=== PATIENT | female | born 1945 | race Caucasian/White ===

== ENCOUNTER 2018-10-18 13:48 | Emergency (ER) | payer MEDICAID, OTHER ==
[~2018-10-18] VITALS: Ht 157.5 cm; Wt 72.6 kg
[~2018-10-18 13:48] MED LIST: HYDR500T13 PO; LEVO500T21 PO; LISI-285 PO; NAPR-591; PRED-188 PO; SIMV-13 PO
[2018-10-18] MEDS ORDERED: cloNIDine HCL 0.1 MG TAB PO ONE (15:00)
[2018-10-18 15:19] LABS: Basophils # (auto) 0 uL; Basophils % (auto) 0.3 % (0.0-2.0); Eosinophils # (auto) 0.1 uL; Eosinophils % (auto) 0.9 % (0.0-7.0); Hematocrit 38.7 % (36.0-46.0); Hemoglobin 12.6 g/dL (12.2-16.2); Lymphocytes # (auto) 1.4 uL; Lymphocytes % (auto) 20.3 % (10.0-50.0); Mean Corpuscular Hemoglobin 28.7 pg (28.0-32.0); Mean Corpuscular Hgb Conc. 32.4 g/dL (32.0-36.0); Mean Corpuscular Volume 88.3 fL (80.0-100.0); Monocytes # (auto) 0.5 uL; Monocytes % (auto) 6.8 % (0.0-12.0); Neutrophils # (auto) 4.9 uL; Neutrophils % (auto) 71.7 % (37.0-80.0); Nucleated Red Blood Cells % 0.1 %; Platelet Count (auto) 189 10^3/uL (140-450); Red Blood Cells 4.38 10^6/uL (4.0-5.20); Red Cell Distribution Width 13.6 % (11.8-14.3); White Blood Cell 6.8 10^3/uL (4.4-10.8)
[2018-10-18] MEDS ORDERED: ALBUTEROL SULF 2.5 MG/0.5ML(0.5%) NEB SOLN NEB ONE (15:45)
[2018-10-18] MEDS ORDERED: IPRATROPIUM BROM 0.5 MG/2.5ML INH SOL NEB ONE (15:45)
[2018-10-18] MEDS ORDERED: methylPREDNISolone SOD SUCC 125 MG/2 ML VL IV ONE (15:45)
[2018-10-18 15:48] LABS: Albumin 4.1 g/dL (3.4-5.0); Anion Gap 8 (5-15); Blood Urea Nitrogen 26 mg/dL (7-18); Calcium 9.4 mg/dL (8.5-10.1); Carbon Dioxide 24 mmol/L (21-32); Chloride 108 mmol/L (98-107); Glucose 113 mg/dL (74-106); Potassium 3.7 mmol/L (3.5-5.1); Sodium 140 mmol/L (136-145)
[2018-10-18 15:54] LABS: Alanine Aminotransferase 21 U/L (13-56); Alkaline Phosphatase 96 U/L (45-117); Aspartate Aminotransferase 17 U/L (15-37); BUN/Creatinine Ratio 21.3; Bilirubin, Total 0.7 mg/dL (0.2-1.0); GFR African American 56 mL/min; GFR Non-African American 46 mL/min; Total Protein 7.7 g/dL (6.4-8.2)
[2018-10-18 19:19] VITALS: BP 128/70
== END 2018-10-18 19:20 | disposition home or self-care (01) ==
LOC: EDBD 13:48 → ER 13:48
DX: J44.9 Chronic obstructive pulmonary disease, unspecified (principal); F17.210 Nicotine dependence, cigarettes, uncomplicated; N83.209 Unspecified ovarian cyst, unspecified side; Z90.710 Acquired absence of both cervix and uterus
CPT/HCPCS: 36415; 71046; 80053; 84484; 85025; 94640; 96374; 99284; J2930; J7611; J7644

== ENCOUNTER 2019-08-07 23:03 | Emergency (ER) | payer OTHER ==
[~2019-08-07] VITALS: Ht 157.5 cm; Wt 75.0 kg
[2019-08-08] MEDS ORDERED: cloNIDine HCL 0.1 MG TAB PO ONE
[2019-08-08] MEDS ORDERED: cloNIDine HCL 0.1 MG TAB ONE (00:01)
[2019-08-08 00:20] LABS: Basophils # (auto) 0 uL; Basophils % (auto) 0.3 % (0.0-2.0); Eosinophils # (auto) 0.1 uL; Eosinophils % (auto) 1.5 % (0.0-7.0); Hematocrit 40.3 % (36.0-46.0); Hemoglobin 13.6 g/dL (12.2-16.2); Lymphocytes # (auto) 2.1 uL; Lymphocytes % (auto) 30.1 % (10.0-50.0); Mean Corpuscular Hemoglobin 30.6 pg (28.0-32.0); Mean Corpuscular Hgb Conc. 33.6 g/dL (32.0-36.0); Monocytes # (auto) 0.7 uL; Monocytes % (auto) 10.4 % (0.0-12.0); Neutrophils % (auto) 57.7 % (37.0-80.0); Platelet Count (auto) 190 10^3/uL (140-450); Red Blood Cells 4.43 10^6/uL (4.0-5.20); White Blood Cell 6.9 10^3/uL (4.4-10.8)
[2019-08-08 00:47] LABS: Albumin 4.3 g/dL (3.4-5.0); Anion Gap 7 (5-15); Blood Urea Nitrogen 20 mg/dL (7-18); Calcium 9.4 mg/dL (8.5-10.1); Carbon Dioxide 27 mmol/L (21-32); Chloride 105 mmol/L (98-107); Glucose 106 mg/dL (74-106); Potassium 3.9 mmol/L (3.5-5.1); Sodium 139 mmol/L (136-145)
[2019-08-08 00:48] LABS: Alanine Aminotransferase 58 U/L (13-56); Aspartate Aminotransferase 32 U/L (15-37); BUN/Creatinine Ratio 19.4; GFR African American 67 mL/min; GFR Non-African American 56 mL/min
[2019-08-08 00:54] LABS: Alkaline Phosphatase 99 U/L (45-117)
[2019-08-08 04:51] LABS: Urine Bacteria MANY /hpf (None Seen); Urine Blood Negative /uL (Negative); Urine Hyaline Cast MANY /lpf (0 - 2); Urine Mucus FEW (None Seen); Urine Specific Gravity 1.029 (1.001-1.035); Urine WBC 16 /hpf (0 - 5)
[2019-08-08] MEDS ORDERED: cefTRIAXone 1GM/50ML D5W 50 ML IV ONE (07:30)
[2019-08-08 09:16] VITALS: BP 158/65
== END 2019-08-08 11:21 | disposition home or self-care (01) ==
LOC: ER 23:09
DX: N39.0 Urinary tract infection, site not specified (principal); I10 Essential (primary) hypertension; M79.10 Myalgia, unspecified site; J44.9 Chronic obstructive pulmonary disease, unspecified; E78.5 Hyperlipidemia, unspecified; Z90.710 Acquired absence of both cervix and uterus; Z87.891 Personal history of nicotine dependence; Z79.2 Long term (current) use of antibiotics; Z79.899 Other long term (current) drug therapy
CPT/HCPCS: 36415; 71045; 80053; 81001; 84484; 85025; 93005; 96365; 99284; J0696

== ENCOUNTER 2021-09-29 13:58 | Inpatient (IN) | payer OTHER ==
[~2021-09-29] VITALS: Ht 152.4 cm; Wt 77.0 kg
[~2021-09-29 13:58] MED LIST changes: -LEVO500T21 PO; +LEVO500T31 PO
[2021-09-29] MEDS ORDERED: ONDANSETRON HCL 4 MG/2 ML VIAL IV ONE ×2 (14:30→18:15)
[2021-09-29] MEDS ORDERED: MORPHINE SULFATE 4 MG/ML SYR/VIAL IV ONE ×2 (14:30→18:15)
[2021-09-29 15:14] LABS: Basophils # (auto) 0 10 ^3/uL (0-0.2); Basophils % (auto) 0.2 % (0.0-2.0); Eosinophils # (auto) 0 10 ^3/uL (0-0.8); Eosinophils % (auto) 0.1 % (0.0-7.0); Hematocrit 35.9 % (36.0-46.0); Hemoglobin 11.4 g/dL (12.2-16.2); Lymphocytes # (auto) 0.9 10 ^3/uL (0.4-5.4); Lymphocytes % (auto) 7.7 % (10.0-50.0); Mean Corpuscular Hemoglobin 28.3 pg (28.0-32.0); Mean Corpuscular Hgb Conc. 31.7 g/dL (32.0-36.0); Mean Corpuscular Volume 89.3 fL (80.0-100.0); Monocytes # (auto) 0.4 10 ^3/uL (0-1.3); Monocytes % (auto) 3.9 % (0.0-12.0); Neutrophils # (auto) 9.9 10 ^3/uL (1.6-8.6); Neutrophils % (auto) 88.1 % (37.0-80.0); Nucleated Red Blood Cells % 0.2 %; Red Blood Cells 4.02 10^6/uL (4.0-5.20); Red Cell Distribution Width 14.4 % (11.8-14.3); White Blood Cell 11.2 10^3/uL (4.4-10.8)
[2021-09-29 15:34] LABS: INR 1.07 (0.9-1.15); Partial Thromboplastin Time 26.5 sec (23.6-33.0)
[2021-09-29 15:38] LABS: Potassium 3.6 mmol/L (3.5-5.1)
[2021-09-29] MEDS ORDERED: hydrALAZINE HCL 20 MG/ML VL IV ONE (15:45)
[2021-09-29 15:49] LABS: Albumin 3.9 g/dL (3.4-5.0); BUN/Creatinine Ratio 14.3; Bilirubin, Total 0.8 mg/dL (0.2-1.0); Calcium 9.3 mg/dL (8.5-10.1); Magnesium 1.8 mg/dL (1.6-2.6); Total Protein 7.8 g/dL (6.4-8.2)
[2021-09-29 16:21] LABS: Urine Bacteria NONE SEEN /hpf (None Seen); Urine Blood TRACE /uL (Negative); Urine Specific Gravity 1.011 (1.001-1.035); Urine WBC 1 /hpf (0 - 5)
[2021-09-29] MEDS ORDERED: MORPHINE SULFATE INJECTION 2 MG/ML SYRG IV PRN (18:45)
[2021-09-29] MEDS ORDERED: NITROGLYCERIN 0.4 MG SL TAB SL PRN (18:45)
[2021-09-29 20:30] VITALS: BP 143/81
[2021-09-29] MEDS ORDERED: DOCUSATE SOD 100 MG CAP PO PRN (21:30)
[2021-09-29] MEDS ORDERED: SODIUM CHLORIDE 0.9% 1,000 ML IV SCH (21:30)
[2021-09-29] MEDS ORDERED: ACETAMINOPHEN 325 MG TAB PO PRN (21:30)
[2021-09-29] MEDS ORDERED: ALBUTEROL SULF 2.5 MG/0.5ML(0.5%) NEB SOLN NEB PRN (21:30)
[2021-09-29] MEDS ORDERED: ONDANSETRON HCL 4 MG/2 ML VIAL IV PRN (21:30)
[2021-09-29] MEDS ORDERED: IPRATROPIUM BROM 0.5 MG/2.5ML INH SOL NEB PRN (21:30)
[2021-09-29 21:51] VITALS: BP 130/72
[2021-09-29] MEDS: ATORVASTATIN 20 MG TAB PO SCH (22:53)
[2021-09-29] MEDS: MORPHINE SULFATE 4 MG/ML SYR/VIAL IV PRN (22:55)
[2021-09-30] VITALS (7 sets, daily range): BP systolic 101–160; BP diastolic 66–110
[2021-09-30] MEDS: MORPHINE SULFATE 4 MG/ML SYR/VIAL IV PRN ×2 (03:13→09:00)
[2021-09-30] MEDS: HYDROcodone-ACET 5/325MG TAB PO PRN ×2 (04:39→11:00)
[2021-09-30 05:11] LABS: Basophils # (auto) 0 10 ^3/uL (0-0.2); Basophils % (auto) 0.2 % (0.0-2.0); Eosinophils # (auto) 0 10 ^3/uL (0-0.8); Eosinophils % (auto) 0.3 % (0.0-7.0); Lymphocytes # (auto) 1.1 10 ^3/uL (0.4-5.4); Lymphocytes % (auto) 11.6 % (10.0-50.0); Mean Corpuscular Hemoglobin 29.6 pg (28.0-32.0); Mean Corpuscular Hgb Conc. 33.3 g/dL (32.0-36.0); Mean Corpuscular Volume 88.8 fL (80.0-100.0); Monocytes # (auto) 0.6 10 ^3/uL (0-1.3); Monocytes % (auto) 6.6 % (0.0-12.0); Neutrophils # (auto) 7.9 10 ^3/uL (1.6-8.6); Neutrophils % (auto) 81.3 % (37.0-80.0); Nucleated Red Blood Cells % 0.1 %; Red Blood Cells 3.72 10^6/uL (4.0-5.20); Red Cell Distribution Width 14.1 % (11.8-14.3); White Blood Cell 9.7 10^3/uL (4.4-10.8)
[2021-09-30] MEDS ORDERED: ESCI5TAB PO (05:21)
[2021-09-30] MEDS ORDERED: ASPI-543 PO (05:21)
[2021-09-30] MEDS ORDERED: PNEUMOCOCCAL VACC POLYS 25 MCG/0.5 ML VIAL IM ONE (05:30)
[2021-09-30] MEDS ORDERED: INFLUENZA QUAD 2021-2022 0.5 ML SYRG IM ONE (05:30)
[2021-09-30 05:51] LABS: Potassium 3.7 mmol/L (3.5-5.1)
[2021-09-30 05:54] LABS: Albumin 3.5 g/dL (3.4-5.0); Calcium 9.1 mg/dL (8.5-10.1)
[2021-09-30 06:07] LABS: Total Protein 7.1 g/dL (6.4-8.2)
[2021-09-30] MEDS: LISINOPRIL 20 MG TAB PO SCH (09:30)
[2021-09-30] MEDS: HYDROmorphone HCL 2 MG/ML VL IV PRN ×3 (13:28→23:53)
[2021-09-30] MEDS: ceFAZolin 1GM/50ML 50 ML IV SCH ×2 (16:00→21:54)
[2021-09-30] MEDS: ATORVASTATIN 20 MG TAB PO SCH (21:54)
[2021-10-01 05:00] VITALS: BP 148/94
[2021-10-01] MEDS: ceFAZolin 1GM/50ML 50 ML IV SCH ×3 (05:16→22:05)
[2021-10-01] MEDS: HYDROmorphone HCL 2 MG/ML VL IV PRN ×4 (05:17→19:49)
[2021-10-01 09:00] VITALS: BP 150/86
[2021-10-01 09:43] LABS: Basophils # (auto) 0 10 ^3/uL (0-0.2); Basophils % (auto) 0.4 % (0.0-2.0); Eosinophils # (auto) 0 10 ^3/uL (0-0.8); Eosinophils % (auto) 0.4 % (0.0-7.0); Hematocrit 32.8 % (36.0-46.0); Hemoglobin 10.5 g/dL (12.2-16.2); Lymphocytes # (auto) 1.1 10 ^3/uL (0.4-5.4); Lymphocytes % (auto) 9.8 % (10.0-50.0); Mean Corpuscular Hemoglobin 28.6 pg (28.0-32.0); Mean Corpuscular Hgb Conc. 32.1 g/dL (32.0-36.0); Mean Corpuscular Volume 89.1 fL (80.0-100.0); Monocytes % (auto) 9.2 % (0.0-12.0); Neutrophils # (auto) 9.1 10 ^3/uL (1.6-8.6); Neutrophils % (auto) 80.2 % (37.0-80.0); Red Blood Cells 3.68 10^6/uL (4.0-5.20); Red Cell Distribution Width 14.4 % (11.8-14.3); White Blood Cell 11.3 10^3/uL (4.4-10.8)
[2021-10-01 09:54] LABS: Calcium 9.2 mg/dL (8.5-10.1); Potassium 3.9 mmol/L (3.5-5.1)
[2021-10-01] MEDS: ENOXAPARIN SOD 40 MG/0.4 ML SYRINGE SC SCH (10:30)
[2021-10-01] MEDS: LISINOPRIL 20 MG TAB PO SCH (10:30)
[2021-10-01 10:33] LABS: INR 1.08 (0.9-1.15); Partial Thromboplastin Time 29.6 sec (23.6-33.0)
[2021-10-01 13:00] VITALS: BP 150/62
[2021-10-01 17:00] VITALS: BP 114/72
[2021-10-01 22:00] VITALS: BP 129/56
[2021-10-01] MEDS: ATORVASTATIN 20 MG TAB PO SCH (22:06)
[2021-10-02] VITALS (15 sets, daily range): BP systolic 107–151; BP diastolic 51–100
[2021-10-02] MEDS: HYDROmorphone HCL 2 MG/ML VL IV PRN (03:58)
[2021-10-02 05:33] LABS: Basophils # (auto) 0 10 ^3/uL (0-0.2); Basophils % (auto) 0.2 % (0.0-2.0); Eosinophils # (auto) 0.1 10 ^3/uL (0-0.8); Eosinophils % (auto) 0.9 % (0.0-7.0); Hematocrit 30.1 % (36.0-46.0); Hemoglobin 10.2 g/dL (12.2-16.2); Lymphocytes # (auto) 1.1 10 ^3/uL (0.4-5.4); Lymphocytes % (auto) 12.6 % (10.0-50.0); Mean Corpuscular Hemoglobin 29.9 pg (28.0-32.0); Mean Corpuscular Hgb Conc. 33.8 g/dL (32.0-36.0); Mean Corpuscular Volume 88.5 fL (80.0-100.0); Monocytes # (auto) 0.9 10 ^3/uL (0-1.3); Neutrophils # (auto) 6.6 10 ^3/uL (1.6-8.6); Neutrophils % (auto) 76.3 % (37.0-80.0); Nucleated Red Blood Cells % 0.1 %; Red Cell Distribution Width 14.3 % (11.8-14.3); White Blood Cell 8.7 10^3/uL (4.4-10.8)
[2021-10-02 05:50] LABS: INR 1.09 (0.9-1.15); Partial Thromboplastin Time 30.8 sec (23.6-33.0)
[2021-10-02 05:51] LABS: Potassium 3.6 mmol/L (3.5-5.1)
[2021-10-02 05:59] LABS: BUN/Creatinine Ratio 19.5; Calcium 9.1 mg/dL (8.5-10.1)
[2021-10-02 06:02] LABS: Bilirubin, Total 1.3 mg/dL (0.2-1.0); Total Protein 6.5 g/dL (6.4-8.2)
[2021-10-02] MEDS: ceFAZolin 1GM/50ML 50 ML IV SCH ×4 (06:04→22:19)
[2021-10-02] MEDS ORDERED: VANCOMYCIN HCL 1000 MG VL ONE (07:40)
[2021-10-02] MEDS ORDERED: KETOROLAC TROMETH 30 MG/ML 1ML VIAL ONE (07:41)
[2021-10-02] MEDS ORDERED: TRANEXAMIC ACID 20 ML ONE (07:45)
[2021-10-02] MEDS ORDERED: BUPIVACAINE W/ EPINEPH 0.25% INJ 50ML MDV ONE (07:45)
[2021-10-02] MEDS ORDERED: MORPHINE SULF PF 2 MG/2 ML SYRG ONE ×2 (07:57→08:54)
[2021-10-02] MEDS ORDERED: SUCCINYLCHOLINE CHLORIDE 20 MG/ML 10ML VIAL IV ONE (08:13)
[2021-10-02] MEDS ORDERED: fentaNYL CITRATE 100 MCG/2 ML VL ONE (08:54)
[2021-10-02] MEDS ORDERED: MIDAZOLAM HCL 2MG/2ML 2ml VIAL (1mg/ml) ONE (08:54)
[2021-10-02] MEDS ORDERED: TETRACAINE 1% INJ 2 ML VIAL IJ ONE (08:55)
[2021-10-02] MEDS: ENOXAPARIN SOD 40 MG/0.4 ML SYRINGE SC SCH (10:00)
[2021-10-02] MEDS: LISINOPRIL 20 MG TAB PO SCH (10:00)
[2021-10-02] MEDS ORDERED: ONDANSETRON HCL 4 MG/2 ML VIAL ONE (10:48)
[2021-10-02] MEDS ORDERED: HYDROmorphone HCL 2 MG/ML VL IV PRN ×2 (11:15→11:30)
[2021-10-02] MEDS ORDERED: fentaNYL CITRATE 100 MCG/2 ML VL IV PRN (11:15)
[2021-10-02] MEDS ORDERED: ONDANSETRON HCL 4 MG/2 ML VIAL IV PRN ×2 (11:15→11:30)
[2021-10-02] MEDS ORDERED: DexAMETHasone SOD PHOS 10MG/1ML VIAL INJ IV PRN (11:30)
[2021-10-02] MEDS ORDERED: diphenhdrAMINE HCL 50 MG/1 ML VL IV PRN (11:30)
[2021-10-02] MEDS ORDERED: NALOXONE HCL 0.4 MG/ML VIAL IV PRN (11:30)
[2021-10-02] MEDS: SODIUM CHLOR 0.9% PF (SALINE LOCK) 10ML VIAL/SYR IV SCH ×2 (14:35→22:19)
[2021-10-02] MEDS: ATORVASTATIN 20 MG TAB PO SCH ×2 (22:00→22:19)
[2021-10-03] VITALS (14 sets, daily range): BP systolic 116–154; BP diastolic 56–92
[2021-10-03] MEDS: LACTATED RINGER'S 1,000 ML IV SCH ×3 (00:45→09:46)
[2021-10-03] MEDS: SODIUM CHLOR 0.9% PF (SALINE LOCK) 10ML VIAL/SYR IV SCH ×2 (05:01→14:03)
[2021-10-03 06:22] LABS: Basophils # (auto) 0 10 ^3/uL (0-0.2); Basophils % (auto) 0.1 % (0.0-2.0); Eosinophils # (auto) 0 10 ^3/uL (0-0.8); Eosinophils % (auto) 0.3 % (0.0-7.0); Hematocrit 26.3 % (36.0-46.0); Lymphocytes # (auto) 0.8 10 ^3/uL (0.4-5.4); Lymphocytes % (auto) 9.3 % (10.0-50.0); Mean Corpuscular Hemoglobin 29.9 pg (28.0-32.0); Mean Corpuscular Hgb Conc. 34.2 g/dL (32.0-36.0); Mean Corpuscular Volume 87.6 fL (80.0-100.0); Monocytes # (auto) 1.2 10 ^3/uL (0-1.3); Monocytes % (auto) 13.7 % (0.0-12.0); Neutrophils # (auto) 6.6 10 ^3/uL (1.6-8.6); Neutrophils % (auto) 76.6 % (37.0-80.0); Red Blood Cells 3.01 10^6/uL (4.0-5.20); Red Cell Distribution Width 13.9 % (11.8-14.3); White Blood Cell 8.6 10^3/uL (4.4-10.8)
[2021-10-03 06:42] LABS: Potassium 3.6 mmol/L (3.5-5.1)
[2021-10-03 06:47] LABS: Albumin 2.4 g/dL (3.4-5.0); BUN/Creatinine Ratio 21.3; Bilirubin, Total 1.6 mg/dL (0.2-1.0); Calcium 8.2 mg/dL (8.5-10.1); Total Protein 5.9 g/dL (6.4-8.2)
[2021-10-03] MEDS: LISINOPRIL 20 MG TAB PO SCH (09:46)
[2021-10-03] MEDS: ENOXAPARIN SOD 40 MG/0.4 ML SYRINGE SC SCH (09:46)
[2021-10-03] MEDS: HYDROmorphone HCL 2 MG/ML VL IV PRN (09:47)
[2021-10-03] MEDS: HYDROcodone-ACET 5/325MG TAB PO PRN (15:03)
[2021-10-03] MEDS: ceFAZolin 1GM/50ML 50 ML IV SCH (15:03)
[2021-10-03 15:51] LABS: Urine Bacteria NONE SEEN /hpf (None Seen); Urine Blood 1+ /uL (Negative); Urine Mucus FEW (None Seen); Urine Specific Gravity 1.016 (1.001-1.035); Urine WBC 10 /hpf (0 - 5)
== END 2021-10-03 16:48 | DRG 522 ==
LOC: EDBD 13:58 → ER 13:58 → TELE 18:45 → TELE-WESTW 20:30
PROVIDERS: ADMIT Internal Medicine; ATTEND Internal Medicine Geriatric Medicine
PROC: 0SRS0JZ Replacement of Left Hip Joint, Femoral Surface with Synthetic Substitute, Open Approach (ICD-10-PCS; principal; 2021-10-02 09:12)
DX: S72.012A Unspecified intracapsular fracture of left femur, initial encounter for closed fracture (principal); S93.402A Sprain of unspecified ligament of left ankle, initial encounter; I10 Essential (primary) hypertension; J44.9 Chronic obstructive pulmonary disease, unspecified; F41.9 Anxiety disorder, unspecified; R09.89 Other specified symptoms and signs involving the circulatory and respiratory systems; Z20.822 Contact with and (suspected) exposure to COVID-19; W18.39XA Other fall on same level, initial encounter; Y92.096 Garden or yard of other non-institutional residence as the place of occurrence of the external cause; Z82.49 Family history of ischemic heart disease and other diseases of the circulatory system; Z83.3 Family history of diabetes mellitus; Z90.710 Acquired absence of both cervix and uterus; Z91.81 History of falling; Y93.89 Activity, other specified; Y99.8 Other external cause status
CPT/HCPCS: 36415; 71045; 72170; 73501; 73502; 73600; 73630; 80048; 80053; 81001; 83735; 84484; 85025; 85610; 85730; 86850; 86900; 86901; 87086; 87426; 93005; 93306; 96374; 96375; 96376; 97163; G0378; J0330; J0690; J1885; J2250; J2405

== ENCOUNTER 2022-03-09 19:00 | Emergency (ER) | payer OTHER ==
[~2022-03-09] VITALS: Ht 157.5 cm; Wt 66.0 kg
[~2022-03-09 19:00] MED LIST changes: +ASPI-543 PO; +ESCI5TAB PO; -LISI-285 PO
[2022-03-09 19:15] VITALS: BP 122/63
== END 2022-03-10 00:35 | disposition left against medical advice (07) ==
LOC: ER 19:00
DX: I10 Essential (primary) hypertension (principal); Z53.21 Procedure and treatment not carried out due to patient leaving prior to being seen by health care provider

== ENCOUNTER 2022-06-22 12:00 | Inpatient (IN) | payer OTHER ==
[~2022-06-22] VITALS: Ht 157.5 cm; Wt 70.0 kg
[2022-06-22] MEDS ORDERED: SODIUM CHLORIDE 0.9% 1,000 ML IV ONE ×2 (12:30→20:15)
[2022-06-22 14:12] LABS: Basophils # (auto) 0 10 ^3/uL (0-0.2); Basophils % (auto) 0.3 % (0.0-2.0); Eosinophils # (auto) 0 10 ^3/uL (0-0.8); Hematocrit 41.6 % (36.0-46.0); Hemoglobin 13.5 g/dL (12.2-16.2); Lymphocytes # (auto) 0.8 10 ^3/uL (0.4-5.4); Lymphocytes % (auto) 9.3 % (10.0-50.0); Mean Corpuscular Hemoglobin 27.5 pg (28.0-32.0); Mean Corpuscular Hgb Conc. 32.5 g/dL (32.0-36.0); Mean Corpuscular Volume 84.6 fL (80.0-100.0); Monocytes # (auto) 0.7 10 ^3/uL (0-1.3); Monocytes % (auto) 8.3 % (0.0-12.0); Neutrophils # (auto) 7.1 10 ^3/uL (1.6-8.6); Neutrophils % (auto) 82.1 % (37.0-80.0); Nucleated Red Blood Cells % 0.2 %; Red Blood Cells 4.92 10^6/uL (4.0-5.20); Red Cell Distribution Width 15.6 % (11.8-14.3); White Blood Cell 8.6 10^3/uL (4.4-10.8)
[2022-06-22 14:16] LABS: Urine Bacteria FEW /hpf (None Seen); Urine Blood 1+ /uL (Negative); Urine WBC 5 /hpf (0 - 5)
[2022-06-22 14:16] LABS: Albumin 4.1 g/dL (3.4-5.0); BUN/Creatinine Ratio 17.1; Calcium 9.1 mg/dL (8.5-10.1); Magnesium 1.8 mg/dL (1.6-2.6); Potassium 4.3 mmol/L (3.5-5.1)
[2022-06-22 14:19] LABS: Bilirubin, Total 1.2 mg/dL (0.2-1.0); Phosphorus 3.1 mg/dL (2.5-4.90)
[2022-06-22] MEDS ORDERED: LABETALOL HCL 5 MG/ML 4ML SYRINGE IV ONE (14:30)
[2022-06-22] MEDS ORDERED: OSELTAMIVIR 75 MG CAP PO ONE (14:30)
[2022-06-22] MEDS ORDERED: IOHEXOL 350 MG/ML 100ML IJ ONE (14:51)
[2022-06-22] MEDS ORDERED: ONDANSETRON HCL 4 MG/2 ML VIAL IV PRN (16:30)
[2022-06-22] MEDS ORDERED: LABETALOL HCL 5 MG/ML 4ML SYRINGE IV PRN (16:30)
[2022-06-22] MEDS ORDERED: ALBUTEROL SULF 2.5 MG/0.5ML(0.5%) NEB SOLN NEB PRN (20:15)
[2022-06-22] MEDS ORDERED: IPRATROPIUM BROM 0.5 MG/2.5ML INH SOL NEB PRN (20:15)
[2022-06-22 22:00] VITALS: BP 160/61
[2022-06-22] MEDS: ATORVASTATIN 20 MG TAB PO SCH (22:39)
[2022-06-22] MEDS: cefTRIAXone 1GM/50ML D5W 50 ML IV SCH (22:39)
[2022-06-22] MEDS: LABETALOL HCL 5 MG/ML 4ML SYRINGE IV PRN (22:40)
[2022-06-22 23:08] VITALS: BP 160/61
[2022-06-22 23:41] LABS: Alcohol, Urine < 3.0 mg/dL (0-10); Amphetamine Screen, Urine NEGATIVE (NEGATIVE); Barbiturate Scree,Urine NEGATIVE (NEGATIVE); Benzodiazephine Screen, Urine NEGATIVE (NEGATIVE); Cannabinoid Screen, Urine NEGATIVE (NEGATIVE); Cocaine Screen, Urine NEGATIVE (NEGATIVE); Creatinine, Urine 112 mg/dL (30.0-125.0); Opiate Scree,Urine NEGATIVE (NEGATIVE); Phencyclidine Screen, Urine NEGATIVE (NEGATIVE); Sodium Urine 51 mmol/L (40-220)
[2022-06-22 23:51] VITALS: BP 160/61
[2022-06-23 05:00] VITALS: BP 117/70
[2022-06-23 05:28] LABS: Basophils # (auto) 0 10 ^3/uL (0-0.2); Basophils % (auto) 0.2 % (0.0-2.0); Eosinophils # (auto) 0 10 ^3/uL (0-0.8); Eosinophils % (auto) 0.1 % (0.0-7.0); Hematocrit 37.1 % (36.0-46.0); Hemoglobin 11.7 g/dL (12.2-16.2); Lymphocytes # (auto) 1.1 10 ^3/uL (0.4-5.4); Lymphocytes % (auto) 21.1 % (10.0-50.0); Mean Corpuscular Hemoglobin 26.6 pg (28.0-32.0); Mean Corpuscular Hgb Conc. 31.6 g/dL (32.0-36.0); Mean Corpuscular Volume 84.3 fL (80.0-100.0); Monocytes # (auto) 0.7 10 ^3/uL (0-1.3); Monocytes % (auto) 14.3 % (0.0-12.0); Neutrophils # (auto) 3.3 10 ^3/uL (1.6-8.6); Neutrophils % (auto) 64.3 % (37.0-80.0); Nucleated Red Blood Cells % 0.1 %; White Blood Cell 5.1 10^3/uL (4.4-10.8)
[2022-06-23 05:45] LABS: Calcium 8.5 mg/dL (8.5-10.1); Potassium 3.7 mmol/L (3.5-5.1)
[2022-06-23 05:50] LABS: Albumin 3.3 g/dL (3.4-5.0); BUN/Creatinine Ratio 20.7; Bilirubin, Total 0.9 mg/dL (0.2-1.0); Total Protein 6.6 g/dL (6.4-8.2)
[2022-06-23 09:00] VITALS: BP 141/75
[2022-06-23] MEDS: ASPirin-EC 81 mg tab PO SCH (10:00)
[2022-06-23] MEDS: PANTOPRAZOLE 40 MG/10 ML VIAL INJ IV SCH (11:22)
[2022-06-23] MEDS: ENOXAPARIN SOD 40 MG/0.4 ML SYRINGE SC SCH (11:22)
[2022-06-23 13:00] VITALS: BP 158/80
[2022-06-23] MEDS ORDERED: OSELTAMIVIR 30 MG CAP PO ONE (13:30)
[2022-06-23] MEDS: SODIUM CHLORIDE 0.9% 1,000 ML IV SCH ×2 (13:40→22:50)
[2022-06-23 17:30] VITALS: BP 153/72
[2022-06-23 21:22] VITALS: BP 145/75
[2022-06-23] MEDS: ATORVASTATIN 20 MG TAB PO SCH (21:33)
[2022-06-23] MEDS: cefTRIAXone 1GM/50ML D5W 50 ML IV SCH (21:33)
[2022-06-23] MEDS: OSELTAMIVIR 30 MG CAP PO SCH (21:34)
[2022-06-24 05:00] VITALS: BP 170/82
[2022-06-24] MEDS: LABETALOL HCL 5 MG/ML 4ML SYRINGE IV PRN (05:50)
[2022-06-24] MEDS: SODIUM CHLORIDE 0.9% 1,000 ML IV SCH (07:43)
[2022-06-24 09:00] VITALS: BP 182/77
[2022-06-24 09:09] LABS: Basophils # (auto) 0 10 ^3/uL (0-0.2); Basophils % (auto) 0.8 % (0.0-2.0); Eosinophils # (auto) 0 10 ^3/uL (0-0.8); Eosinophils % (auto) 0.5 % (0.0-7.0); Hematocrit 34.4 % (36.0-46.0); Hemoglobin 10.8 g/dL (12.2-16.2); Lymphocytes # (auto) 1.2 10 ^3/uL (0.4-5.4); Lymphocytes % (auto) 22.4 % (10.0-50.0); Mean Corpuscular Hemoglobin 26.5 pg (28.0-32.0); Mean Corpuscular Hgb Conc. 31.3 g/dL (32.0-36.0); Mean Corpuscular Volume 84.9 fL (80.0-100.0); Monocytes # (auto) 0.5 10 ^3/uL (0-1.3); Monocytes % (auto) 8.6 % (0.0-12.0); Neutrophils # (auto) 3.6 10 ^3/uL (1.6-8.6); Neutrophils % (auto) 67.7 % (37.0-80.0); Nucleated Red Blood Cells % 0.1 %; Red Blood Cells 4.05 10^6/uL (4.0-5.20); Red Cell Distribution Width 15.6 % (11.8-14.3); White Blood Cell 5.3 10^3/uL (4.4-10.8)
[2022-06-24 09:26] LABS: BUN/Creatinine Ratio 18.5; Calcium 8.9 mg/dL (8.5-10.1); Magnesium 1.9 mg/dL (1.6-2.6); Potassium 3.8 mmol/L (3.5-5.1)
[2022-06-24] MEDS ORDERED: TAMIF30 PO (09:38)
[2022-06-24] MEDS ORDERED: LISI-716 PO (09:38)
[2022-06-24] MEDS ORDERED: LISINOPRIL 10 MG TAB PO SCH (10:00)
[2022-06-24] MEDS: PANTOPRAZOLE 40 MG/10 ML VIAL INJ IV SCH (10:37)
[2022-06-24] MEDS: ASPirin-EC 81 mg tab PO SCH (10:38)
[2022-06-24] MEDS: OSELTAMIVIR 30 MG CAP PO SCH (10:38)
[2022-06-24] MEDS: ENOXAPARIN SOD 40 MG/0.4 ML SYRINGE SC SCH (10:38)
[2022-06-24 10:51] VITALS: BP 182/77
[2022-06-24 13:00] VITALS: BP 179/69
== END 2022-06-24 12:45 | disposition home or self-care (01) | DRG 682 ==
LOC: EDBD 12:00 → ER 12:00 → WEST WING 16:27 → TELE-WESTW 21:46
PROVIDERS: ADMIT Nurse Practitioner Family; ATTEND Nurse Practitioner Family
DX: N17.9 Acute kidney failure, unspecified (principal); G93.41 Metabolic encephalopathy; A09 Infectious gastroenteritis and colitis, unspecified; I16.1 Hypertensive emergency; J98.11 Atelectasis; J10.1 Influenza due to other identified influenza virus with other respiratory manifestations; K57.30 Diverticulosis of large intestine without perforation or abscess without bleeding; F41.9 Anxiety disorder, unspecified; I10 Essential (primary) hypertension; E86.0 Dehydration; E78.5 Hyperlipidemia, unspecified; Z20.822 Contact with and (suspected) exposure to COVID-19; J44.9 Chronic obstructive pulmonary disease, unspecified; Z82.49 Family history of ischemic heart disease and other diseases of the circulatory system; Z83.3 Family history of diabetes mellitus; Z90.710 Acquired absence of both cervix and uterus
CPT/HCPCS: 36415; 70450; 71045; 71275; 75635; 80048; 80053; 80307; 81001; 82140; 82570; 82962; 83605; 83690; 83735; 83880; 84100; 84300; 84484; 85025; 85652; 86592; 87040; 87426; 87804; 92610; 93005; 96361; 96365; 96375; 97116; 97162; 97530; C9113; G0378; G9035; J0696; J3490

== ENCOUNTER 2025-01-09 20:08 | Emergency (ER) | payer OTHER ==
[~2025-01-09] VITALS: Ht 157.5 cm; Wt 75.0 kg
[~2025-01-09 20:08] MED LIST changes: -LEVO500T31 PO; +LISI10TA34 PO; -NAPR-591; -PRED-188 PO; -SIMV-13 PO; +SIMV40TA18 PO; +TAMIF30 PO
--- NOTE | 2025-01-09 20:42 | ED.PDOC ---
Back pain HPI HPI Comments 79 y/o F, brought in by daughter, with PMHx of anxiety, asthma, COPD, HLD, and HTN presents to the ED for CC of back pain. Per patient's daughter, patient has been experiencing lower lumbar back pain x2days. Patient's daughter, states patient is visiting from [place] and has not taken her regular scheduled medications which she believes maybe contributing to symptoms. Patient denies trauma, fall, or recent injury. No other symptoms or modifying factors present at this time. Vital signs were stable on arrival. Chief Complaint: Back Pain Time Seen by MD: 20:20 Primary Care Provider: unknown Reviewed Notes: Nurses Notes, Medications, Allergies Allergies: Coded Allergies: NO KNOWN ALLERGIES (Unverified , 08/31/14) Home Meds Active Scripts Oseltamivir Phosphate (Tamiflu) 30 Mg Cp, 30 MG PO BID for 5 Days, #10 CAP Prov:LEONCIO PASCAL MD 06/24/22 Lisinopril (Lisinopril) 10 Mg Tab, 10 MG PO DAILY for 30 Days, #30 TAB Prov:LEONCIO PASCAL MD 06/24/22 Reported Medications Escitalopram Oxalate (Lexapro) 5 Mg Tab, 1 TAB PO DAILY, #30 TAB 2 Refills 09/30/21 Aspirin (Aspir-Low) 81 Mg Tab, 81 MG PO DAILY for 30 Days, MG 09/30/21 Hydrocodone-Acetaminophen (Acetaminophen/Hydrocodone) 1 Tab Tab, 5-325 MG PO Q6HP PRN for MODERATE PAIN, #120 08/31/14 Simvastatin (Simvastatin) 40 Mg Tab, 40 MG PO HS, #60 08/31/14 Information Source: Patient, Relative (Child) Mode of Arrival: Wheelchair Timing: Minutes Duration: Since onset Location of Back pain: (B) Lumbar Severity: Moderate Prehospital treatment: None Onset: Spontaneous History of: None Modifying Factors: Nothing Associated signs and symptoms: None Past Medical History PAST MEDICAL HISTORY: Anxiety, Asthma, COPD, High Lipids, HTN Surgical History: Hysterectomy [employer] History: Ovarian Cysts Family History Family History: Reviewed,noncontributory to illness Social History Smoker: Non-Smoker, Quit Less Than 1 Year, Cigarettes Alcohol: Denies ETOH Use Drugs: Denies Drug Use Lives In: Home Constitutional: reports: chills, diaphoresis, fatigue, fever, malaise, sweats, weakness, others EENTM: denies: blurred vision, double vision, ear bleeding, ear discharge, ear drainage, ear pain, ear ringing, eye pain, eye redness, hearing loss, mouth pain, mouth swelling, nasal discharge, nose bleeding, nose congestion, nose pa in, photophobia, tearing, throat pain, throat swelling, voice changes, others Respiratory: denies: cough, hemoptysis, orthopnea, SOB at rest, shortness of breath, SOB with excertion, stridor, wheezing, others Cardiovascular: denies: chest pain, dizzy spells, diaphoresis, Dyspnea on exertion, edema, irregular heart beat, left arm pain, lightheadedness, palpitations, PND, syncope, others Gastrointestinal: denies: abdomen distended, abdominal pain, blood streaked bowels, constipated, diarrhea, dysphagia, difficulty swallowing, hematemesis, melena, nausea, poor appetite, poor fluid intake, rectal bleeding, rectal pain, vomiting, others Genitourinary: denies: abnormal vagina bleeding, burning, dyspareunia, dysuria, flank pain, frequency, hematuria, incontinence, pain, , vagina discharge, urgency, others Neurological: denies: dizziness, fainting, headache, left sided numbness, left sided weakness, numbness, paresthesia, pre-existing deficit, right sided numbness, right sided weakness, seizure, speech problems, tingling, tremors, weakness, others Musculoskeletal: reports: back pain; denies: gout, joint pain, joint swelling, muscle pain, muscle stiffness, neck pain, others Integumetry: denies: bruises, change in color, change in hair/nails, dryness, laceration, lesions, lumps, rash, wounds, others Allergic/Immunocompromised: denies: Difficulty Healing, Frequent Infections, Hives, Itching, others Hematologic/Lymphatic: denies: anemia, blood clots, easy bleeding, easy bruising, swollen glands, others Endocrine: denies: excessive hunger, excessive sweating, excessive thirst, excessive urination, flushing, intolerance to cold, intolerance to heat, unexpla ined weight gain, unexplained weight loss, others Psychiatric: denies: anxiety, bipolar disorder, depression, hopeless, panic disorder, schizophrenia, sleepless, suicidal, others All Other Systems: Reviewed and Negative Physical Exam General Appearance: Moderate Distress (Patient presents as a pdsd-kp-mbibhkndcl ill 79-year-old female.), Normal HEENT: Normal ENT Inspection, Pharynx Normal, TMs Normal Neck: Full Range of Motion, Non-Tender, Normal, Normal Inspection Respiratory: Chest Non-Tender, Lungs Clear, No Accessory Muscle Use, No Respiratory Distress, Normal Breath Sounds Cardiovascular: No Edema, No JVD, No Murmur, No Gallop, Normal Peripheral Pulses, Regular Rate/Rhythm Breast Exam: Deferred Gastrointestinal: Other (Diffuse bilateral lower abdominal tenderness to palpation throughout. Mild suprapubic tenderness. No pulsatile masses.) Genitalia: Deferred Pelvic: Deferred Rectal: Deferred Extremities: No calf tenderness, Normal capillary refill, No pedal edema Musculoskeletal : Location: Bilateral Extremity Location: Back (Diffuse bilateral lumbar tenderness to palpation throughout. Mild to moderate hypertonicity appreciated. No step-offs.) Apperance: Normal Neurologic: Alert, No Sensory Deficits Cerebellar Function: NOT DONE Reflexes: NOT DONE Skin: Dry, Normal Color, Warm Lymphatic: No Adenopathy Was a procedure done? Was a procedure done?: No Back Pain Differential Dx Differential Diagnosis: Musculoskeletal Pain, Strain, Other (Urinary tract infection, degenerative disc disease of the lumbar spine.) X-Ray, Labs, Meds, VS Vital Signs Date Time Temp Pulse Resp B/P (MAP) Pulse Ox O2 Delivery O2 Flow Rate FiO2 01/09/25 21:23 68 16 96 Room Air 01/09/25 21:23 98.0 68 16 172/81 (111) 96 98.0 01/09/25 21:13 84 20 95 Room Air* 0 21 01/09/25 20:33 98.2 68 16 160/78 (105) 92 98.2 Lab Test 01/09/25 20:00 Range/Units Urine Color Light-yellow Yellow Urine Clarity Clear Clear Urine pH 5.5 5.0-9.0 Urine Specific [place] 1.018 1.001-1.035 Urine Protein Negative Negative Urine Ketones Negative Negative Urine Blood Negative Negative /uL Urine Nitrite Negative Negative Urine Bilirubin Negative Negative Urine Urobilinogen Normal Negative mg/dL Urine Leukocyte Esterase 3+ Negative /uL Urine RBC 2 0 - 4 /hpf Urine Microscopic WBC 16 H 0-5 /HPF Urine Squamous Epithelial Cells Few <5 /hpf Urine Bacteria None seen None Seen /hpf Urine Glucose Normal Normal mg/dL Current Medications Medications (Trade) Dose Ordered Sig/Kathy Route Start Time Stop Time Status Last Admin Acetaminophen/ Hydrocodone Bitart ([place] 5/325MG Tab) 1 tab ONCE ONCE PO 01/09/25 20:30 01/09/25 20:31 DC 01/09/25 21:[address] [address] Ph: [phone] DIAGNOSTIC IMAGING Diagnostic Imaging Report : [id number] Signed PATIENT: YUDITH NAPIER ACCT: [id number] UNIT: [id number] : 1945 LOC: ER ROOM / BED: / AGE / SEX: 79 / F ADM STATUS: REG ER SERVICE 26 ORDERING PHYSICIAN: CRISTY DIEGO PAC PROCEDURE(s): LUMB2 - LUMBAR SPINE 3 VIEW REASON: Back pain ORDER NUMBER(s): [id number], ACCESSION NUMBER(s): [id number] CLINICAL INDICATION: Back pain TECHNIQUE: 3 radiographic views of the lumbar spine were obtained. Comparison: None FINDINGS/IMPRESSION: 5 fzv-zsv-ozmelbr lumbar-type vertebrae. Mild straightening of the lumbar lordosis. Multilevel mild loss of vertebral body height of T12-L5 with deformity of S1 of unknown chronicity. CT should be considered for further evaluation. Multilevel bhyd-wt-pyqvulvw degenerative changes of the lumbar spine. Small to moderate amount of fecal material within the colon. 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 ATED BY: MAUREEN CORTES DO DICTATED DATE/TIME: 01/09/252116 SIGNED BY: MAUREEN CORTES DO SIGNED DATE/TIME: 01/09/252116 CC: X-Ray, Labs, Meds, VS Comment All studies performed the ED were evaluated by me personally. Urinalysis confirmed a large urinary tract infection. Patient was given 1st dose of antibiotics prior to discharge. Lumbar spine series confirmed degenerative disc disease of the lumbar spine. Advise patient follow up with the primary care provider for discussions related to low back pain concerns. Patient should utilize antibiotics as directed until completion. Time of 1ST Reevaluation: 22:31 Reevaluation 1ST: Improved Consultation: PCP Patient Education/Counseling: Diagnosis, Treatment Family Education/Counseling: Diagnosis, Treatment, No Family Present Departure 1 Departure Time of Disposition: 22:32 Impression: Primary Impression: Degenerative joint disease (DJD) of lumbar spine Additional Impression: UTI (urinary tract infection) Disposition: HOME / SELF CARE / HOMELESS Condition: Stable Additional Instructions: Advised patient utilize antibiotics as directed until completion as well as pain medication as needed. Patient will need to follow up with the primary care provider for discussions related to low back pain concerns. e-Prescriptions Hydrocodone-Acetaminophen (Hydrocodone Bitartrate/AC 5-325 mg) 1 Tab Tab 1 TAB PO Q8HP PRN, #12 TAB Prov: CRISTY DIEGO PAC 01/09/25 Sulfamethoxazole W/Trimethopri (Bactrim Ds Tablet) 1 Tab Tb 1 TAB PO BID for 10 Days, #20 TAB Prov: CRISTY DIEGO PAC 01/09/25 Discharged With: Self, Relative Critical Care Note Critical Care Time?: No Stability Stability form required: No Heart Score Heart Score: Heart Score Response (Comments) Value History N/A 0 EKG N/A 0 Age N/A 0 Risk Factors N/A 0 Troponin N/A 0 Total 0 I personally scribed for CRISTY DIEGO PAC ([email or web address]) on 01/09/25 at 20:42. Electronically submitted by Karley Bae ([email or web address]). I personally scribed for CRISTY DIEGO PAC ([email or web address]) on 01/09/25 at 21:23. Electronically submitted by Karley Bae ([email or web address]). CRISTY DIEGO PAC Jan 09, 2025 20:42
[2025-01-09 21:13] VITALS: PULSE 84; RESP 20; O2SAT 95
[2025-01-09 21:15] LABS: Urine Bacteria None Seen /hpf (None Seen)
[2025-01-09] MEDS: HYDROcodone-ACET 5/325MG TAB PO ONE (21:17)
--- NOTE | 2025-01-09 21:20 | DVH ---
CLINICAL INDICATION: Back pain TECHNIQUE: 3 radiographic views of the lumbar spine were obtained. Comparison: None FINDINGS/IMPRESSION: 5 wzg-ili-mlbyhed lumbar-type vertebrae. Mild straightening of the lumbar lordosis. Multilevel mild l oss of vertebral body height of T12-L5 with deformity of S1 of unknown chronicity. CT should be consi dered for further evaluation. Multilevel gcmq-mx-eaxnrwur degenerative changes of the lumbar spine. Small to moderate amount of fecal material within the colon. 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
[2025-01-09 21:21] LABS: Urine Blood Negative /uL (Negative); Urine Clarity Clear (Clear); Urine Color Light-Yellow (Yellow); Urine Protein, UAD Negative (Negative); Urine Specific Gravity 1.018 (1.001-1.035); Urine Squamous Epithelial Cell FEW /hpf (<5); Urine Urobilinogen Normal (Negative); Urine WBC 16 /HPF (0-5); Urine pH 5.5 (5.0-9.0)
[2025-01-09] MEDS ORDERED: SULFAMETHOX W/TRIMETH(800/160MG) DS TAB PO ONE (22:30)
[2025-01-09] MEDS ORDERED: HYDR-4902 PO (22:33)
[2025-01-09] MEDS ORDERED: BACDST PO (22:33)
[2025-01-09 22:56] VITALS: BP 129/84; PULSE 70; RESP 18; TEMP 98; O2SAT 97
== END 2025-01-09 22:45 | disposition home or self-care (01) ==
LOC: ER 20:08
DX: M51.360 Other intervertebral disc degeneration, lumbar region with discogenic back pain only (principal); N39.0 Urinary tract infection, site not specified; F41.9 Anxiety disorder, unspecified; J44.9 Chronic obstructive pulmonary disease, unspecified; I10 Essential (primary) hypertension; Z90.710 Acquired absence of both cervix and uterus; Z79.899 Other long term (current) drug therapy
CPT/HCPCS: 72100; 81001

== ENCOUNTER 2025-03-20 14:44 | Inpatient (IN) | payer OTHER ==
[~2025-03-20] VITALS: Ht 160 cm; Wt 78.2 kg
[~2025-03-20 14:44] MED LIST changes: +BACDST PO; +HYDR-4902 PO
--- NOTE | 2025-03-20 15:23 | ED.PDOC ---
General HPI Comments 80-year-old female presents here with right flank pain x3 days. Denies any nausea vomiting diarrhea. She states she has been significant pain and took 6 of the brown pills yesterday. Does not known the name of it but when I asked her if was ibuprofen she shakes her head yes. She states she was not able to get here sooner as she did not have a ride. He does report dysuria during this time frame. Denies any chest pain. Denies any injury to the site. Denies any recent cough cold runny nose fever or chills. Chief Complaint: Flank Pain Time Seen by MD: 14:58 Primary Care Provider: Erin Fermin notes: Medications, Allergies Allergies: Coded Allergies: NO KNOWN ALLERGIES (Unverified , 08/31/14) Home Meds Active Scripts Hydrocodone-Acetaminophen (Hydrocodone Bitartrate/AC 5-325 mg) 1 Tab Tab, 1 TAB PO Q8HP PRN, #12 TAB Prov:CRISTY DIEGO PAC 01/09/25 Sulfamethoxazole W/Trimethopri (Bactrim Ds Tablet) 1 Tab Tb, 1 TAB PO BID for 10 Days, #20 TAB Prov:CRISTY DIEGO PAC 01/09/25 Oseltamivir Phosphate (Tamiflu) 30 Mg Cp, 30 MG PO BID for 5 Days, #10 CAP Prov:LEONCIO PASCAL MD 06/24/22 Lisinopril (Lisinopril) 10 Mg Tab, 10 MG PO DAILY for 30 Days, #30 TAB Prov:LEONCIO PASCAL MD 06/24/22 Reported Medications Escitalopram Oxalate (Lexapro) 5 Mg Tab, 1 TAB PO DAILY, #30 TAB 2 Refills 09/30/21 Aspirin (Aspir-Low) 81 Mg Tab, 81 MG PO DAILY for 30 Days, MG 09/30/21 Hydrocodone-Acetaminophen (Acetaminophen/Hydrocodone) 1 Tab Tab, 5-325 MG PO Q6HP PRN for MODERATE PAIN, #120 08/31/14 Simvastatin (Simvastatin) 40 Mg Tab, 40 MG PO HS, #60 08/31/14 Information Source: Patient Mode of Arrival: Ambulatory Brought in by: self Past Medical History PAST MEDICAL HISTORY: Anxiety, Asthma, COPD, High Lipids, HTN Surgical History: Hysterectomy PARTS COORDINATOR History: Ovarian Cysts Family History Family History: Reviewed,noncontributory to illness Social History Smoker: Non-Smoker, Quit Less Than 1 Year, Cigarettes Alcohol: Denies ETOH Use Drugs: Denies Drug Use Lives In: Home Constitutional: denies: chills, diaphoresis, fatigue, fever, malaise, sweats, weakness, others EENTM: denies: blurred vision, double vision, ear bleeding, ear discharge, ear drainage, ear pain, ear ringing, eye pain, eye redness, hearing loss, mouth pain, mouth swelling, nasal discharge, nose bleeding, nose congestion, nose pain, photophobia, tearing, throat pain, throat swelling, voice changes, others Respiratory: denies: cough, hemoptysis, orthopnea, SOB at rest, shortness of breath, SOB with excertion, stridor, wheezing, others Cardiovascular: denies: chest pain, dizzy spells, diaphoresis, Dyspnea on exertion, edema, irregular heart beat, left arm pain, lightheadedness, palpitations, PND, syncope, others Gastrointestinal: denies: abdomen distended, abdominal pain, blood streaked bowels, constipated, diarrhea, dysphagia, difficulty swallowing, hematemesis, melena, nausea, poor appetite, poor fluid intake, rectal bleeding, rectal pain, vomiting, others Genitourinary: reports: dysuria, flank pain; denies: abnormal vagina bleeding, burning, dyspareunia, frequency, hematuria, incontinence, pain, , vagina discharge, urgency, others Neurological: denies: dizziness, fainting, headache, left sided numbness, left sided weakness, numbness, paresthesia, pre-existing deficit, right sided numbness, right sided weakness, seizure, speech problems, tingling, tremors, weakness, others Musculoskeletal: denies: back pain, gout, joint pain, joint swelling, muscle pain, muscle stiffness, neck pain, others Integumetry: denies: bruises, change in color, change in hair/nails, dryness, laceration, lesions, lumps, rash, wounds, others Allergic/Immunocompromised: denies: Difficulty Healing, Frequent Infections, Hives, Itching, others Hematologic/Lymphatic: denies: anemia, blood clots, easy bleeding, easy bruising, swollen glands, others Endocrine: denies: excessive hunger, excessive sweating, excessive thirst, excessive urination, flushing, intolerance to cold, intolerance to heat, unexplained weight gain, unexplained weight loss, others Psychiatric: denies: anxiety, bipolar disorder, depression, hopeless, panic disorder, schizophrenia, sleepless, suicidal, others All Other Systems: Reviewed and Negative Physical Exam General Appearance: No Apparent Distress, Normal HEENT: Normal ENT Inspection, Pharynx Normal, TMs Normal Neck: Full Range of Motion, Non-Tender, Normal, Normal Inspection Respiratory: Chest Non-Tender, Lungs Clear, No Accessory Muscle Use, No Respiratory Distress, Normal Breath Sounds Cardiovascular: No Edema, No JVD, No Murmur, No Gallop, Normal Peripheral Pulses, Regular Rate/Rhythm Breast Exam: Deferred Gastrointestinal: No Organomegaly, Non Tender, No Pulsatile Mass, Normal Bowel Sounds, Soft, Other (No CVA tenderness) Genitalia: Deferred Pelvic: Deferred Rectal: Deferred Extremities: No calf tenderness, Normal capillary refill, Normal inspection, Normal range of motion, Non-tender, No pedal edema Musculoskeletal : Apperance: Normal Neurologic: Alert, almond roaster II-XII nml as Tested, No Motor Deficits, Normal Affect, Normal Mood, No Sensory Deficits Cerebellar Function: Normal Reflexes: Normal Skin: Dry, Normal Color, Warm Lymphatic: No Adenopathy Was a procedure done? Was a procedure done?: No Differential Diagnosis Kidney stone (Female): AAA, Aortic dissection, Musculoskeletal pain, Pyelonephritis, Renal failure, Strain, Urinary obstruction, Urolithiasis Kidney stone (Male): N/A Penile/Scrotal: N/A Urinary Problem (Male): N/A Urinary Problem (Female): N/A X-Ray, Labs, Meds, VS Vital Signs Date Time Temp Pulse Resp B/P (MAP) Pulse Ox O2 Delivery O2 Flow Rate FiO2 03/20/25 17:10 201/118 03/20/25 17:10 75 16 201/118 03/20/25 17:10 97.7 75 16 201/118 (145) 94 97.7 03/20/25 14:45 98.7 72 18 209/103 98 98.7 Lab Test 03/20/25 16:50 03/20/25 15:51 Range/Units Urine Color Light-yellow Yellow Urine Clarity Clear Clear Urine pH 5.5 5.0-9.0 Urine Specific [place] 1.013 1.001-1.035 Urine Protein Negative Negative Urine Ketones Negative Negative Urine Blood Negative Negative /uL Urine Nitrite Negative Negative Urine Bilirubin Negative Negative Urine Urobilinogen Normal Negative mg/dL Urine Leukocyte Esterase 3+ Negative /uL Urine RBC 1 0 - 4 /hpf Urine Microscopic WBC 11 H 0-5 /HPF Urine Squamous Epithelial Cells Few <5 /hpf Urine Bacteria None seen None Seen /hpf Urine Glucose Normal Normal mg/dL White Blood Count 6.8 4.4-10.8 10^3/uL Red Blood Count 4.55 4.0-5.20 10^6/uL Hemoglobin 11.8 L 12.2-16.2 g/dL Hematocrit 36.2 36.0-46.0 % Mean Corpuscular Volume 79.6 L 80.0-100.0 fL Mean Corpuscular Hemoglobin 25.9 L 28.0-32.0 pg Mean Corpuscular Hemoglobin Concent 32.5 32.0-36.0 g/dL Red Cell Distribution Width 16.3 H 11.8-14.3 % Platelet Count 180 140-450 10^3/uL Mean Platelet Volume 8.0 6.9-10.8 fL Neutrophils (%) (Auto) 63.2 37.0-80.0 % Lymphocytes (%) (Auto) 26.3 10.0-50.0 % Monocytes (%) (Auto) 8.2 0.0-12.0 % Eosinophils (%) (Auto) 1.9 0.0-7.0 % Basophils (%) (Auto) 0.4 0.0-2.0 % Neutrophils # (Auto) 4.3 1.6-8.6 10 ^3/uL Lymphocytes # (Auto) 1.8 0.4-5.4 10 ^3/uL Monocytes # (Auto) 0.6 0-1.3 10 ^3/uL Eosinophils # (Auto) 0.1 0-0.8 10 ^3/uL Basophils # (Auto) 0 0-0.2 10 ^3/uL Nucleated Red Blood Cells 0.1 % Sodium Level 143 136-145 mmol/L Potassium Level 4.0 3.5-5.1 mmol/L Chloride Level 109 H 98-107 mmol/L Carbon Dioxide Level 22 20-31 mmol/L Anion Gap 12 5-15 Blood Urea Nitrogen 25 H 9-23 mg/dL Creatinine 1.52 H 0.550-1.02 mg/dL Glomerular Filtration Rate Calc 34 >90 mL/min BUN/Creatinine Ratio 16.4 10.0-20.0 Serum Glucose 91 74-106 mg/dL Calcium Level 9.8 8.7-10.4 mg/dL Total Bilirubin 0.7 0.2-1.0 mg/dL Aspartate Amino Transferase (AST) 16 13-40 U/L Alanine Aminotransferase (ALT) 12 7-40 U/L Alkaline Phosphatase 103 46-116 U/L Total Protein 7.5 5.7-8.2 g/dL Albumin 5.0 H 3.2-4.8 g/dL Current Medications Medications (Trade) Dose Ordered Sig/Kathy Route Start Time Stop Time Status Last Admin Morphine Sulfate 2 mg ONCE ONCE IV 03/20/25 15:45 03/20/25 15:46 DC 03/20/25 17:10 Ondansetron HCl (Zofran) 4 mg ONCE ONCE IV 03/20/25 15:45 03/20/25 15:46 DC 03/20/25 17:10 Hydralazine HCl (Apresoline Injection) 5 mg ONCE ONCE IV 03/20/25 15:45 03/20/25 15:46 DC 03/20/25 17:10 [place] [id number] Ph: [phone] DIAGNOSTIC IMAGING Diagnostic Imaging Report : [id number] Signed PATIENT: YUDITH NAPIER ACCT: [id number] UNIT: [id number] : 1945 LOC: ER ROOM / BED: / AGE / SEX: 80 / F ADM STATUS: REG ER SERVICE 1526 ORDERING PHYSICIAN: NAVID DINH MD PROCEDURE(s): ABPL - CT AB PEL WO CON-NO ORAL OR IV REASON: ro kidney stone ORDER NUMBER(s): [id number], ACCESSION NUMBER(s): [id number] Exam: CT CT AB PEL WO CON-NO ORAL OR IV History: ro kidney stone Comparison Study: CT ANGIO ABD AORTA W RUN OFF on DOS: 06/22/22, PELVIS AP on DOS: 10/02/21 TECHNIQUE: Multidetector CT of the abdomen was performed from lung bases to pubic symphysis. Imaging was performed without IV contrast. Axial, coronal and sagittal multiplanar reformats were obtained from the axial data set by the technologist. Radiation Dose Information: CT Dose: CTDI volume is 17.72 mGy. Dose-length product is 963.24 mGy*cm FINDINGS: Evaluation of solid organs is limited due to lack of intravenous contrast use. Findings: Lung Bases: No acute or significant lung base finding. Normal heart size. No pleural or pericardial effusion. Liver: The liver is normal in size. No focal lesions. Gallbladder and Biliary Tree: Unremarkable Spleen: Unremarkable Pancreas: The pancreas is grossly normal in appearance. Adrenal Glands: Unremarkable Kidneys: Atrophic left kidney Bladder: Grossly unremarkable for degree of distention. Bowel: The stomach is grossly normal in appearance. Small bowel and colon are normal in caliber and distribution. The appendix is not visualized; however, no secondary findings of acute appendicitis identified. Ascites: Absent Lymphadenopathy: No mesenteric, retroperitoneal or periportal lymphadenopathy. Abdominal Wall and Mesentery: Unremarkable. Vasculature: Abdominal aorta above celiac and superior mesenteric arteries measures 5.8 cm in diameter. Aorta below the renal arteries measures 3.7 cm. Aorta above the bifurcation measures 1.9 cm. Right iliac artery measures 7-8 mm. Left iliac artery measures 9 mm. Pelvic Organs: Unremarkable Musculoskeletal: No aggressive focal bony lesions, acute fractures or dislocation. Soft tissues: Unremarkable IMPRESSION: 1. No nephrolithiasis or hydronephrosis. Atrophic left kidney is visualized. 2. Abdominal aorta is of aneurysmal size (5.8 cm) above the celiac artery. 3. Abdominal aorta at the level of the celiac and superior mesenteric arteries measures. 4. Below the renal arteries and measures 3.7 cm. 5. Just above the aortic bifurcation and measures 1.9 cm. 6. Right iliac artery measures 7-8 mm. Left iliac artery measures 9 mm. Radiation optimization: All CT scans at this facility use at least one of these dose optimization techniques: automated exposure control mA and/or kV adjustment per patient size (includes targeted exams where dose is matched to clinical indication) or iterative reconstruction. ATED BY: ELHAM WEBER Jr., DO DICTATED DATE/TIME: 03/20/251627 SIGNED BY: ELHAM WEBER Jr., SIGNED DATE/TIME: 08/23/25 1628 CC: 80-year-old female presents here for right flank pain. She states it has been going on for 3 days. Positive dysuria. Considered possible pyelonephritis, nephrolithiasis. Blood pressure has been found to be 209/103. Unclear if this is secondary to pain. I have ordered morphine 2 mg IV as well as hydralazine 5 mg IV. CBC CMP also has been ordered. I also ordered a CT abdomen pelvis to rule out nephrolithiasis as well as urinalysis. CBC has returned which is normal. CMP with evidence of acute kidney injury. Urine positive for UTI. I have given the patient Rocephin. CT abdomen pelvis has returned with no evidence of nephrolithiasis but does demonstrate a AAA of 5.8 cm. I considered ordering a CT angio of the abdomen however given patient's acute kidney injury unable to do so at this time. Patient also has a very high blood pressure, which has improved into the 160 range after hydralazine. I spoke to Dr. Newby regarding the patient's case, given her aortic aneurysm, her pyelonephritis, and her blood pressure and of the patient could be admitted to [facility] he agreed for admission and advised he would consult vascular surgery. At this time [facility] Time of 1ST Reevaluation: 16:00 Reevaluation 1ST: Unchanged Time of 2ND Reevaluation: 17:28 Reevaluation 2ND: Improved Patient Education/Counseling: Diagnosis, Treatment Family Education/Counseling: No Family Present SEPSIS Sepsis Screen Date sepsis recognized/suspect: Mar 20, 2025 Time Sepsis recognized/suspect: 1447 Recent Procedure: No On Antibiotic Therapy: No Respiratory Rate >20: No Heart Rate >90: No Temp<36 C (96.8 F) or >38.3 C: No SBP <90 or MAP <65 mmHG: No New Acute Mental Status Change: No Is the patient on CPAP, BIPAP,: No Physician Orders Ct Ab Pel Wo Con-No Oral Or Iv (03/20/25 15:26) Ceftriaxone Ivpb Rocephin (03/20/25 17:30) Urine Bacterial Culture (03/20/25 17:24) Vital Signs Date Time Temp Pulse Resp B/P (MAP) Pulse Ox O2 Delivery O2 Flow Rate FiO2 03/20/25 17:10 201/118 03/20/25 17:10 75 16 201/118 03/20/25 17:10 97.7 75 16 201/118 (145) 94 97.7 03/20/25 14:45 98.7 72 18 209/103 98 98.7 Laboratory Tests Test 03/20/25 15:51 White Blood Count 6.8 10^3/uL (4.4-10.8) Medications Medications Dose Ordered Sig/Kathy Route Start Time Stop Time Status Last Admin Dose Admin Hydralazine HCl 5 mg ONCE ONCE IV 03/20/25 15:45 03/20/25 15:46 DC 03/20/25 17:10 Morphine Sulfate 2 mg ONCE ONCE IV 03/20/25 15:45 03/20/25 15:46 DC 03/20/25 17:10 Ondansetron HCl 4 mg ONCE ONCE IV 03/20/25 15:45 03/20/25 15:46 DC 03/20/25 17:10 Departure 1 Departure Time of Disposition: 17:26 Impression: Primary Impression: Pyelonephritis Additional Impressions: Abdominal aneurysm Acute kidney injury Hypertensive urgency Disposition: ADMITTED INPATIENT Condition: Guarded Critical Care Note Critical Care Time?: Yes (35 min-critical care time only) Critical care comment: Time spent evaluating the patient, multiple re-evaluations of her blood pressure, , discussing treatment plan with Dr. Bueno, speaking to additional ER physicians, speaking to admitting physician, speaking to lab expedite care, speaking to nursing staff to expedite care Stability Stability form required: No Heart Score Heart Score: Heart Score Response (Comments) Value History N/A 0 EKG N/A 0 Age N/A 0 Risk Factors N/A 0 Troponin N/A 0 Total 0 I personally scribed for NAVID DINH MD ([email or web address]) on 03/20/25 at 15:23. Electronically submitted by Lela Delaney ([employer]). I personally scribed for NAVID DINH MD ([email or web address]) on 03/20/25 at 15:45. Electronically submitted by Lela Delaney ([employer] [facility]). I personally scribed for NAVID DINH MD ([email or web address]) on 8/23/25 at 16:09. Electronically submitted by Lela Delaney ([facility]). I personally scribed for NAVID DINH MD ([email or web address]) on 03/20/25 at 16:33. Electronically submitted by Lela Delaney ([facility]). NAVID DINH MD Mar 20, 2025 15:23
[2025-03-20] MEDS ORDERED: HYDROcodone-ACET 5/325MG TAB PO ONE (15:30)
[2025-03-20 16:08] LABS: Nucleated Red Blood Cells % 0.1 %
[2025-03-20 16:10] LABS: Hematocrit 36.2 % (36.0-46.0); Hemoglobin 11.8 g/dL (12.2-16.2); Mean Corpuscular Hemoglobin 25.9 pg (28.0-32.0); Mean Corpuscular Volume 79.6 fL (80.0-100.0)
[2025-03-20 16:16] LABS: Alanine Aminotransferase 12 U/L (7-40); Albumin 5.0 g/dL (3.2-4.8); Alkaline Phosphatase 103 U/L (46-116); Anion Gap 12 (5-15); BUN/Creatinine Ratio 16.4 (10.0-20.0); Bilirubin, Total 0.7 mg/dL (0.2-1.0); Blood Urea Nitrogen 25 mg/dL (9-23); Calcium 9.8 mg/dL (8.7-10.4); Carbon Dioxide 22 mmol/L (20-31); Chloride 109 mmol/L (98-107); Glucose 91 mg/dL (74-106); Potassium 4.0 mmol/L (3.5-5.1); Sodium 143 mmol/L (136-145); Total Protein 7.5 g/dL (5.7-8.2)
--- NOTE | 2025-03-20 16:30 | DVH ---
Exam: CT CT AB PEL WO CON-NO ORAL OR IV History: ro kidney stone Comparison Study: CT ANGIO ABD AORTA W RUN OFF on DOS: 06/22/22, PELVIS AP on DOS: 10/02/21 TECHNIQUE: Multidetector CT of the abdomen was performed from lung bases to pubic symphysis. Imaging was performed without IV contrast. Axial, coronal and sagittal multiplanar reformats were obtained fr om the axial data set by the technologist. Radiation Dose Information: CT Dose: CTDI volume is 17.72 mGy. Dose-length product is 963.24 mGy*cm FINDINGS: Evaluation of solid organs is limited due to lack of intravenous contrast use. Findings: Lung Bases: No acute or significant lung base finding. Normal heart size. No pleural or pericardial effusion. Liver: The liver is normal in size. No focal lesions. Gallbladder and Biliary Tree: Unremarkable Spleen: Unremarkable Pancreas: The pancreas is grossly normal in appearance. Adrenal Glands: Unremarkable Kidneys: Atrophic left kidney Bladder: Grossly unremarkable for degree of distention. Bowel: The stomach is grossly normal in appearance. Small bowel and colon are normal in caliber and d istribution. The appendix is not visualized; however, no secondary findings of acute appendicitis id entified. Ascites: Absent Lymphadenopathy: No mesenteric, retroperitoneal or periportal lymphadenopathy. Abdominal Wall and Mesentery: Unremarkable. Vasculature: Abdominal aorta above celiac and superior mesenteric arteries measures 5.8 cm in diamete r. Aorta below the renal arteries measures 3.7 cm. Aorta above the bifurcation measures 1.9 cm. Right iliac artery measures 7-8 mm. Left iliac artery measures 9 mm. Pelvic Organs: Unremarkable Musculoskeletal: No aggressive focal bony lesions, acute fractures or dislocation. Soft tissues: Unremarkable IMPRESSION: 1. No nephrolithiasis or hydronephrosis. Atrophic left kidney is visualized. 2. Abdominal aorta is of aneurysmal size (5.8 cm) above the celiac artery. 3. Abdominal aorta at the level of the celiac and superior mesenteric arteries measures. 4. Below the renal arteries and measures 3.7 cm. 5. Just above the aortic bifurcation and measures 1.9 cm. 6. Right iliac artery measures 7-8 mm. Left iliac artery measures 9 mm. Radiation optimization: All CT scans at this facility use at least one of these dose optimization te chniques: automated exposure control mA and/or kV adjustment per patient size (includes targeted exa ms where dose is matched to clinical indication) or iterative reconstruction.
[2025-03-20 17:10] LABS: Urine Protein, UAD Negative (Negative)
[2025-03-20] MEDS: MORPHINE SULFATE INJ 2 MG/ml SYRG IV ONE (17:10)
[2025-03-20] MEDS: hydrALAZINE HCL 20 MG/ML VL IV ONE (17:10)
[2025-03-20] MEDS: ONDANSETRON HCL 4 MG/2 ML VIAL IV ONE (17:10)
[2025-03-20 17:12] VITALS: PULSE 83; RESP 15; O2SAT 94
--- NOTE | 2025-03-20 18:59 | DVHHP2 ---
Admitting Diagnosis: Abdominal pain History of Present Illness 80-year-old female presents here with right flank pain x3 days. Denies any nausea vomiting diarrhea. She states she has been significant pain and took 6 of the brown pills yesterday. Does not known the name of it but when I asked her if was ibuprofen she shakes her head yes. She states she was not able to get here sooner as she did not have a ride. He does report dysuria during this time frame. Denies any chest pain. Denies any injury to the site. Denies any recent cough cold runny nose fever or chills. PAST MEDICAL HISTORY: Anxiety, Asthma, COPD, High Lipids, HTN Surgical History: Hysterectomy [employer] History: Ovarian Cysts Family History Family History: Reviewed,noncontributory to illness Social History Smoker: Non-Smoker, Quit Less Than 1 Year, Cigarettes Alcohol: Denies ETOH Use Drugs: Denies Drug Use Lives In: Home Patient Family History: Cancer G8 SISTER (BREAST) G8 SISTER (BREAST) Diabetes mellitus in brother Family history: Cardiovascular disease G8 MOTHER Allergies: Coded Allergies: NO KNOWN ALLERGIES (Unverified , 08/31/14) Home Meds Active Scripts Hydrocodone-Acetaminophen (Hydrocodone Bitartrate/AC 5-325 mg) 1 Tab Tab, 1 TAB PO Q8HP PRN, #12 TAB Prov:CRISTY DIEGO PAC 01/09/25 Sulfamethoxazole W/Trimethopri (Bactrim Ds Tablet) 1 Tab Tb, 1 TAB PO BID for 10 Days, #20 TAB Prov:CRISTY DIEGO PAC 01/09/25 Oseltamivir Phosphate (Tamiflu) 30 Mg Cp, 30 MG PO BID for 5 Days, #10 CAP Prov:LEONCIO PASCAL MD 06/24/22 Lisinopril (Lisinopril) 10 Mg Tab, 10 MG PO DAILY for 30 Days, #30 TAB Prov:LEONCIO PASCAL MD 06/24/22 Reported Medications Escitalopram Oxalate (Lexapro) 5 Mg Tab, 1 TAB PO DAILY, #30 TAB 2 Refills 09/30/21 Aspirin (Aspir-Low) 81 Mg Tab, 81 MG PO DAILY for 30 Days, MG 09/30/21 Hydrocodone-Acetaminophen (Acetaminophen/Hydrocodone) 1 Tab Tab, 5-325 MG PO Q6HP PRN for MODERATE PAIN, #120 08/31/14 Simvastatin (Simvastatin) 40 Mg Tab, 40 MG PO HS, #60 08/31/14 Current Medications Current Medications Medications (Trade) Dose Ordered Sig/Kathy Route PRN Reason Start Time Stop Time Status Last Admin Hydralazine HCl (Apresoline Injection) 10 mg Q6HP PRN IV SBP>150 03/20/25 19:00 03/20/25 19:09 DC Nicardipine HCl 250 ml @ 50 mls/hr Q5H IV 03/20/25 19:15 03/20/25 19:23 DC Nicardipine/ Sodium Chloride 250 ml @ 50 mls/hr Q5H IV 03/20/25 19:30 03/20/25 19:26 DC Nicardipine/ Sodium Chloride 250 ml @ 50 mls/hr Q5H IV 03/20/25 19:30 03/20/25 19:27 DC Nicardipine/ Sodium Chloride 200 ml @ 50 mls/hr Q4H IV 03/20/25 19:30 Sodium Chloride (Saline Lock Ns) 10 ml Q8HR IV 03/20/25 22:00 UNV Docusate Sodium (Colace Capsule) 100 mg BIDPRN PRN PO FOR CONSTIPATION 03/20/25 19:45 UNV Acetaminophen (Tylenol Tablet) 650 mg Q6HP PRN PO PAIN SCALE 1-3 OR TEMP>100.4 03/20/25 19:45 UNV Acetaminophen/ Hydrocodone Bitart ([place] 5/325MG Tab) 1 tab Q4HP PRN PO MODERATE PAIN (4-6 PAIN SCALE) 03/20/25 19:45 UNV Hydromorphone HCl (Dilaudid Injection) 0.5 mg Q4HP PRN IV SEVERE PAIN (7-10 PAIN SCALE) 03/20/25 19:45 UNV Ondansetron HCl (Zofran) 4 mg Q4HP PRN IV NAUSEA / VOMITING 03/20/25 19:45 UNV Ceftriaxone Sodium 50 ml @ 100 mls/hr DAILY@09 IV 03/21/25 09:00 UNV Vital Signs Vital Signs Date Time Temp Pulse Resp B/P (MAP) Pulse Ox O2 Delivery O2 Flow Rate FiO2 03/20/25 19:14 87 13 199/110 03/20/25 19:01 97 03/20/25 17:12 Nasal Cannula* 3 32 03/20/25 17:12 97.6 97.6 Physical Exam Generally-80 years old woman, well nourished well developed. No apparent distress HEENT-atraumatic, normocephalic Heart-regular rate and rhythm Lungs clear to auscultate bilaterally Abdomen soft, nontender nondistended Musculoskeletal-no edema cyanosis Neuro-AO three no focal deficits SEPSIS Sepsis Screen Date sepsis recognized/suspect: Mar 20, 2025 Time Sepsis recognized/suspect: 1446 Recent Procedure: No On Antibiotic Therapy: No Respiratory Rate >20: No Heart Rate >90: No Temp<36 C (96.8 F) or >38.3 C: No SBP <90 or MAP <65 mmHG: No New Acute Mental Status Change: No Is the patient on CPAP, BIPAP,: No Physician Orders Ct Ab Pel Wo Con-No Oral Or Iv (03/20/25 15:26) Urine Bacterial Culture (03/20/25 17:24) Communication Order (03/20/25 17:47) Sodium Chl 0.9% (Ns... W/Labetalol Injec (03/20/25 19:00) Nicardipine Hcl In Sodium Chlo (Cardene (03/20/25 19:30) Admit (03/20/25 19:41) Code Status (03/20/25 19:41) Vital Signs .PER UNIT PROTOCOL (03/20/25 19:41) Review Orders With Adm.Md (03/20/25 19:41) Encourage Activity As Tolerate (03/20/25 19:41) Sodium Chloride Lock (Saline Lock Ns) (03/20/25 22:00) Docusate Sodium Capsule (Colace Capsule) (03/20/25 19:45) Acetaminophen Tablet (Tylenol Tablet) (03/20/25 19:45) Notify Md Of Changes From Base (03/20/25 19:41) Advance Directive (03/20/25 19:41) Patient Condition (03/20/25 19:41) Allergies (03/20/25 19:41) Hydrocodone-Acet 5/325mg Tab ([place] 5/32 (03/20/25 19:45) Hydromorphone Injection (Dilaudid Inject (03/20/25 19:45) Ondansetron Hcl (Zofran) (03/20/25 19:45) Ceftriaxone Ivpb Rocephin (03/21/25 09:00) Kidney (03/20/25 19:41) Comprehensive Metabolic Panel (03/21/25 05:00) Comprehensive Metabolic Panel (03/22/25 05:00) Comprehensive Metabolic Panel (03/23/25 05:00) Comprehensive Metabolic Panel (03/24/25 05:00) Comprehensive Metabolic Panel (03/25/25 05:00) Complete Blood Count (03/21/25 05:00) Complete Blood Count (03/22/25 05:00) Complete Blood Count (03/23/25 05:00) Complete Blood Count (03/24/25 05:00) Complete Blood Count (03/25/25 05:00) Echo 2d Mode Cardiac Dop (03/20/25 19:45) Vital Signs Date Time Temp Pulse Resp B/P (MAP) Pulse Ox O2 Delivery O2 Flow Rate FiO2 03/20/25 19:14 87 13 199/110 03/20/25 19:01 93 12 199/110 (139) 97 03/20/25 17:12 83 15 94 Nasal Cannula* 3 32 03/20/25 17:12 97.6 83 15 164/70 (101) 94 97.6 03/20/25 17:10 201/118 03/20/25 17:10 75 16 201/118 03/20/25 17:10 97.7 75 16 201/118 (145) 94 97.7 03/20/25 14:45 98.7 72 18 209/103 98 98.7 Laboratory Tests Test 03/20/25 15:51 White Blood Count 6.8 10^3/uL (4.4-10.8) Medications Medications Dose Ordered Sig/Kathy Route Start Time Stop Time Status Last Admin Dose Admin Ceftriaxone Sodium 50 ml @ 100 mls/hr ONCE ONCE IV 03/20/25 17:30 03/20/25 17:59 DC 03/20/25 19:13 Hydralazine HCl 5 mg ONCE ONCE IV 03/20/25 15:45 03/20/25 15:46 DC 03/20/25 17:10 Morphine Sulfate 2 mg ONCE ONCE IV 03/20/25 15:45 03/20/25 15:46 DC 03/20/25 17:10 Ondansetron HCl 4 mg ONCE ONCE IV 03/20/25 15:45 03/20/25 15:46 DC 03/20/25 17:10 Results Labs Test 03/20/25 16:50 03/20/25 15:51 Range/Units Urine Color Light-yellow Yellow Urine Clarity Clear Clear Urine pH 5.5 5.0-9.0 Urine Specific [place] 1.013 1.001-1.035 Urine Protein Negative Negative Urine Ketones Negative Negative Urine Blood Negative Negative /uL Urine Nitrite Negative Negative Urine Bilirubin Negative Negative Urine Urobilinogen Normal Negative mg/dL Urine Leukocyte Esterase 3+ Negative /uL Urine RBC 1 0 - 4 /hpf Urine Microscopic WBC 11 H 0-5 /HPF Urine Squamous Epithelial Cells Few <5 /hpf Urine Bacteria None seen None Seen /hpf Urine Glucose Normal Normal mg/dL White Blood Count 6.8 4.4-10.8 10^3/uL Red Blood Count 4.55 4.0-5.20 10^6/uL Hemoglobin 11.8 L 12.2-16.2 g/dL Hematocrit 36.2 36.0-46.0 % Mean Corpuscular Volume 79.6 L 80.0-100.0 fL Mean Corpuscular Hemoglobin 25.9 L 28.0-32.0 pg Mean Corpuscular Hemoglobin Concent 32.5 32.0-36.0 g/dL Red Cell Distribution Width 16.3 H 11.8-14.3 % Platelet Count 180 140-450 10^3/uL Mean Platelet Volume 8.0 6.9-10.8 fL Neutrophils (%) (Auto) 63.2 37.0-80.0 % Lymphocytes (%) (Auto) 26.3 10.0-50.0 % Monocytes (%) (Auto) 8.2 0.0-12.0 % Eosinophils (%) (Auto) 1.9 0.0-7.0 % Basophils (%) (Auto) 0.4 0.0-2.0 % Neutrophils # (Auto) 4.3 1.6-8.6 10 ^3/uL Lymphocytes # (Auto) 1.8 0.4-5.4 10 ^3/uL Monocytes # (Auto) 0.6 0-1.3 10 ^3/uL Eosinophils # (Auto) 0.1 0-0.8 10 ^3/uL Basophils # (Auto) 0 0-0.2 10 ^3/uL Nucleated Red Blood Cells 0.1 % Sodium Level 143 136-145 mmol/L Potassium Level 4.0 3.5-5.1 mmol/L Chloride Level 109 H 98-107 mmol/L Carbon Dioxide Level 22 20-31 mmol/L Anion Gap 12 5-15 Blood Urea Nitrogen 25 H 9-23 mg/dL Creatinine 1.52 H 0.550-1.02 mg/dL Glomerular Filtration Rate Calc 34 >90 mL/min BUN/Creatinine Ratio 16.4 10.0-20.0 Serum Glucose 91 74-106 mg/dL Calcium Level 9.8 8.7-10.4 mg/dL Total Bilirubin 0.7 0.2-1.0 mg/dL Aspartate Amino Transferase (AST) 16 13-40 U/L Alanine Aminotransferase (ALT) 12 7-40 U/L Alkaline Phosphatase 103 46-116 U/L Total Protein 7.5 5.7-8.2 g/dL Albumin 5.0 H 3.2-4.8 g/dL Primary Diagnosis Hypertensive emergency Acute urinary tract JOIE Abdominal aneurysm Plan Patient's granddaughter was at the bedside. Does not recorded the patient takes her meds Nicardipine drip for blood pressure goal less than 130/80 for abdominal nourished Check echo of the heart to assess for structural heart disease Ceftriaxone 1 g q.day, urine culture pending Ultrasound kidney shows status for JOIE IV fluids Nephrology consult Full code Heparin for DVT prophylaxis No GI prophylaxis needed Cardiac diet Plan discussed with: Patient Date of Service: Mar 20, 2025 Billing Provider: KRYSTYNA WALKER MD Common Visit Codes: [id number] CARE 30-74 MIN KRYSTYNA WALKER MD Mar 20, 2025 18:59
[2025-03-20] MEDS: LABETALOL INJECTION 250 MG in SODIUM CHL 0.9% 200 ML IV ONE (19:00)
[2025-03-20] MEDS ORDERED: hydrALAZINE HCL 20 MG/ML VL IV PRN (19:00)
[2025-03-20] MEDS ORDERED: NICARDIPINE 20 MG/200 ML IV SCH ×2 (19:30)
[2025-03-20] MEDS ORDERED: ACETAMINOPHEN 325 MG TAB PO PRN (19:45)
[2025-03-20] MEDS ORDERED: HYDROmorphone HCL 2 MG/ML VL/or syr IV PRN (19:45)
[2025-03-20] MEDS ORDERED: ONDANSETRON HCL 4 MG/2 ML VIAL IV PRN (19:45)
[2025-03-20 20:05] VITALS: PULSE 79; RESP 20; O2SAT 98
[2025-03-20] MEDS: SODIUM CHLOR 0.9% PF (SALINE LOCK) 10ML VIAL/SYR IV SCH (20:56)
--- NOTE | 2025-03-20 20:58 | DVH ---
INDICATION: igor TECHNIQUE: Multiple real-time sonographic images of the kidneys and bladder were obtained. COMPARISON: None FINDINGS: The right kidney measures 8.7 cm in length, which is normal in size. There is normal echoge nicity of the right kidney. No hydronephrosis. The left kidney measures 6.4 cm in length, which is normal in size. There is normal echogenicity of t he left kidney. No hydronephrosis. No large intraluminal masses are seen in the bladder. Prior to voiding the bladder volume measures vo lume 595 cc. Incidental note of cholelithiasis. IMPRESSION: 1. Left renal cortical atrophy. No hydronephrosis.
[2025-03-20 21:00] VITALS: PULSE 79; RESP 20; O2SAT 98
[2025-03-20] MEDS: ATORVASTATIN 20 MG TAB PO SCH (22:16)
[2025-03-20] MEDS: HEPARIN SODIUM (PORCINE) 5000 UNITS/ML 1ML VIAL SC SCH (22:17)
[2025-03-21 04:17] LABS: Hemoglobin 11.7 g/dL (12.2-16.2); Nucleated Red Blood Cells % 0.1 %
[2025-03-21 04:18] LABS: Hematocrit 36.1 % (36.0-46.0); Mean Corpuscular Hemoglobin 26.2 pg (28.0-32.0); Mean Corpuscular Volume 81.2 fL (80.0-100.0)
[2025-03-21 04:34] LABS: Alanine Aminotransferase 11 U/L (7-40); Albumin 4.5 g/dL (3.2-4.8); Alkaline Phosphatase 97 U/L (46-116); Anion Gap 13 (5-15); BUN/Creatinine Ratio 11.4 (10.0-20.0); Bilirubin, Total 0.8 mg/dL (0.2-1.0); Blood Urea Nitrogen 17 mg/dL (9-23); Calcium 9.5 mg/dL (8.7-10.4); Carbon Dioxide 22 mmol/L (20-31); Glucose 92 mg/dL (74-106); Potassium 3.8 mmol/L (3.5-5.1); Sodium 145 mmol/L (136-145); Total Protein 7.2 g/dL (5.7-8.2)
[2025-03-21 04:38] LABS: Chloride 110 mmol/L (98-107)
[2025-03-21] MEDS: CITALOPRAM HYDROBR 20 MG TAB PO SCH (09:01)
[2025-03-21] MEDS: ASPirin-EC 81 mg tab PO SCH (09:02)
--- NOTE | 2025-03-21 10:23 | DVHINCON2 ---
Date of service: Mar 21, [address] Treadwell Reason for Consultation Acute kidney injury History of Present Illness Patient is a 80-year-old female with past medical history significant for Anxiety, Asthma, COPD, High Lipids, and HTN is admitted close three day history of right back pain. On admission patient found to have elevated creatinine nephrology is consulted for acute kidney injury Past Medical History PAST MEDICAL HISTORY: Anxiety, Asthma, COPD, High Lipids, HTN Past Surgical History Surgical History: Hysterectomy [employer] History: Ovarian Cysts Allergies: Coded Allergies: NO KNOWN ALLERGIES (Unverified , 08/31/14) Home Meds Active Scripts Hydrocodone-Acetaminophen (Hydrocodone Bitartrate/AC 5-325 mg) 1 Tab Tab, 1 TAB PO Q8HP PRN, #12 TAB Prov:CRISTY DIEGO PAC 01/09/25 Sulfamethoxazole W/Trimethopri (Bactrim Ds Tablet) 1 Tab Tb, 1 TAB PO BID for 10 Days, #20 TAB Prov:CRISTY DIEGO PAC 01/09/25 Oseltamivir Phosphate (Tamiflu) 30 Mg Cp, 30 MG PO BID for 5 Days, #10 CAP Prov:LEONCIO PASCAL MD 06/24/22 Lisinopril (Lisinopril) 10 Mg Tab, 10 MG PO DAILY for 30 Days, #30 TAB Prov:LEONCIO PASCAL MD 06/24/22 Reported Medications Escitalopram Oxalate (Lexapro) 5 Mg Tab, 1 TAB PO DAILY, #30 TAB 2 Refills 09/30/21 Aspirin (Aspir-Low) 81 Mg Tab, 81 MG PO DAILY for 30 Days, MG 09/30/21 Hydrocodone-Acetaminophen (Acetaminophen/Hydrocodone) 1 Tab Tab, 5-325 MG PO Q6HP PRN for MODERATE PAIN, #120 08/31/14 Simvastatin (Simvastatin) 40 Mg Tab, 40 MG PO HS, #60 08/31/14 Current Medications Current Medications Medications (Trade) Dose Ordered Sig/Kathy Route PRN Reason Start Time Stop Time Status Last Admin Hydralazine HCl (Apresoline Injection) 10 mg Q6HP PRN IV SBP>150 03/20/25 19:00 03/20/25 19:09 DC Nicardipine HCl 250 ml @ 50 mls/hr Q5H IV 03/20/25 19:15 03/20/25 19:23 DC Nicardipine/ Sodium Chloride 250 ml @ 50 mls/hr Q5H IV 03/20/25 19:30 03/20/25 19:26 DC Nicardipine/ Sodium Chloride 250 ml @ 50 mls/hr Q5H IV 03/20/25 19:30 03/20/25 19:27 DC Nicardipine/ Sodium Chloride 200 ml @ 50 mls/hr Q4H IV 03/20/25 19:30 03/21/25 01:39 DC 03/20/25 20:35 Sodium Chloride (Saline Lock Ns) 10 ml Q8HR IV 03/20/25 22:00 03/21/25 05:41 Docusate Sodium (Colace Capsule) 100 mg BIDPRN PRN PO FOR CONSTIPATION 03/20/25 19:45 Acetaminophen (Tylenol Tablet) 650 mg Q6HP PRN PO PAIN SCALE 1-3 OR TEMP>100.4 03/20/25 19:45 Acetaminophen/ Hydrocodone Bitart ([place] 5/325MG Tab) 1 tab Q4HP PRN PO MODERATE PAIN (4-6 PAIN SCALE) 03/20/25 19:45 Hydromorphone HCl (Dilaudid Injection) 0.5 mg Q4HP PRN IV SEVERE PAIN (7-10 PAIN SCALE) 03/20/25 19:45 Ondansetron HCl (Zofran) 4 mg Q4HP PRN IV NAUSEA / VOMITING 03/20/25 19:45 Ceftriaxone Sodium 50 ml @ 100 mls/hr DAILY@1900 IV 03/21/25 19:00 Heparin Sodium (Porcine) 5,000 units Q12HR SC 03/20/25 22:00 03/21/25 09:02 Aspirin (Ecotrin Enteric Coated Tablet) 81 mg DAILY PO 03/21/25 10:00 03/21/25 09:02 Citalopram Hydrobromide (CeleXA TABLET) 10 mg DAILY PO 03/21/25 10:00 03/21/25 09:01 Atorvastatin Calcium (Lipitor) 20 mg HS PO 03/20/25 22:00 03/20/25 22:16 Hydralazine HCl (Apresoline Injection) 10 mg Q6HP PRN IV SBP>150 03/21/25 01:00 Family History: Cancer G8 SISTER (BREAST) G8 SISTER (BREAST) Diabetes mellitus in brother Family history: Cardiovascular disease G8 MOTHER Review of Systems All 12 item review of systems reviewed with the patient nonsignificant except what is mentioned in the history of present illness H&P Exam Vital Signs/I&O Vital Sign Date Time Temp Pulse Resp B/P (MAP) Pulse Ox O2 Delivery O2 Flow Rate FiO2 03/21/25 10:00 66 14 134/76 (95) 93 03/21/25 08:00 98.0 98.0 03/21/25 07:49 Room Air* 0 21 Intake and Output 03/20/25 03/21/25 19:00 07:00 Intake Total 50 ml Balance 50 ml Intake IV Total 50 ml Physical Exam Patient awake and alert, difficulty hearing Lungs clear to auscultation bilaterally Cardiac exam regular rate and rhythm GI soft nontender normal Extremities no clubbing cyanosis or edema Neuro nonfocal Labs/Diagnostic Data Labs/Diagnostic Data Laboratory Tests Test 03/21/25 03:43 03/20/25 16:50 03/20/25 15:51 Range/Units White Blood Count 7.6 6.8 4.4-10.8 10^3/uL Red Blood Count 4.45 4.55 4.0-5.20 10^6/uL Hemoglobin 11.7 L 11.8 L 12.2-16.2 g/dL Hematocrit 36.1 36.2 36.0-46.0 % Mean Corpuscular Volume 81.2 79.6 L 80.0-100.0 fL Mean Corpuscular Hemoglobin 26.2 L 25.9 L 28.0-32.0 pg Mean Corpuscular Hemoglobin Concent 32.3 32.5 32.0-36.0 g/dL Red Cell Distribution Width 16.4 H 16.3 H 11.8-14.3 % Platelet Count 163 180 140-450 10^3/uL Mean Platelet Volume 8.0 8.0 6.9-10.8 fL Neutrophils (%) (Auto) 68.6 63.2 37.0-80.0 % Lymphocytes (%) (Auto) 21.3 26.3 10.0-50.0 % Monocytes (%) (Auto) 8.2 8.2 0.0-12.0 % Eosinophils (%) (Auto) 1.4 1.9 0.0-7.0 % Basophils (%) (Auto) 0.5 0.4 0.0-2.0 % Neutrophils # (Auto) 5.2 4.3 1.6-8.6 10 ^3/uL Lymphocytes # (Auto) 1.6 1.8 0.4-5.4 10 ^3/uL Monocytes # (Auto) 0.6 0.6 0-1.3 10 ^3/uL Eosinophils # (Auto) 0.1 0.1 0-0.8 10 ^3/uL Basophils # (Auto) 0 0 0-0.2 10 ^3/uL Nucleated Red Blood Cells 0.1 0.1 % Sodium Level 145 143 136-145 mmol/L Potassium Level 3.8 4.0 3.5-5.1 mmol/L Chloride Level 110 H 109 H 98-107 mmol/L Carbon Dioxide Level 22 22 20-31 mmol/L Anion Gap 13 12 5-15 Blood Urea Nitrogen 17 25 H 9-23 mg/dL Creatinine 1.49 H 1.52 H 0.550-1.02 mg/dL Glomerular Filtration Rate Calc 35 34 >90 mL/min BUN/Creatinine Ratio 11.4 16.4 10.0-20.0 Serum Glucose 92 91 74-106 mg/dL Calcium Level 9.5 9.8 8.7-10.4 mg/dL Total Bilirubin 0.8 0.7 0.2-1.0 mg/dL Aspartate Amino Transferase (AST) 15 16 13-40 U/L Alanine Aminotransferase (ALT) 11 12 7-40 U/L Alkaline Phosphatase 97 103 46-116 U/L Total Protein 7.2 7.5 5.7-8.2 g/dL Albumin 4.5 5.0 H 3.2-4.8 g/dL Urine Color Light-yellow Yellow Urine Clarity Clear Clear Urine pH 5.5 5.0-9.0 Urine Specific [place] 1.013 1.001-1.035 Urine Protein Negative Negative Urine Ketones Negative Negative Urine Blood Negative Negative /uL Urine Nitrite Negative Negative Urine Bilirubin Negative Negative Urine Urobilinogen Normal Negative mg/dL Urine Leukocyte Esterase 3+ Negative /uL Urine RBC 1 0 - 4 /hpf Urine Microscopic WBC 11 H 0-5 /HPF Urine Squamous Epithelial Cells Few <5 /hpf Urine Bacteria None seen None Seen /hpf Urine Glucose Normal Normal mg/dL Assessment Acute kidney injury superimposed Chronic Kidney Disease secondary hemodynamic mediated Back pain Atrophic left kidney Urine Tract infection COPD Anemia of chronic kidney disease Recommendations Closely monitor fluid and electrolytes Avoid nephrotoxic medications Strict I&Os Renal diet IV antibiotic Resume home medications Kidney ultrasound reported atrophic left kidney Pain management primary team We will continue to follow Patient seen and examined by myself in the ER bed 4. I discussed my plan of care with the patient and primary nurse at the bedside I would like to thank Dr. Treadwell for the consult, will follow up Plan discussed with: Patient NIXON JONES MD Mar 21, 2025 10:23
[2025-03-21 11:24] LABS: Uric Acid 5.2 mg/dL (3.1-7.8)
[2025-03-21 11:25] LABS: Magnesium 1.7 mg/dL (1.6-2.6)
[2025-03-21] MEDS: hydrALAZINE HCL 20 MG/ML VL IV PRN (12:17)
[2025-03-21 16:30] VITALS: BP 158/83; PULSE 91; RESP 16; TEMP 98.7; O2SAT 97
[2025-03-21 16:34] VITALS: PULSE 91; RESP 16; O2SAT 97
[2025-03-21] MEDS: HYDROcodone-ACET 5/325MG TAB PO PRN (17:18)
--- NOTE | 2025-03-21 17:29 | DVHPN2 ---
[facility] Patient's chart is reviewed and evaluated. Admitted here with a hypertensive urgency and noted to have 5.8 cm abdominal aortic aneurysm. Changes from previous H/P or p: No Changes Objective Vitals Vital Signs Date Time Temp Pulse Resp B/P (MAP) Pulse Ox O2 Delivery O2 Flow Rate FiO2 03/21/25 15:58 86 18 121/80 (94) 98 03/21/25 12:00 98.6 98.6 03/21/25 07:49 Room Air* 0 21 Intake/Output Intake and Output 03/21/25 07:00 Intake Total 50 ml Balance 50 ml IV Total 50 ml General Appearance: Alert, Oriented X3 HEENT: Atraumatic, PERRLA, EOMI Lungs: Clear to auscultation, Normal air movement Cardiovascular: Regular rate, Normal S1, Normal S2, No murmurs Abdomen: Normal bowel sounds, Soft, No tenderness, No hepatospenomegaly Extremities: No cyanosis, No edema, Normal pulses Neuro: Normal speech Psych/Mental Status: Mental status NL Medications Current Medications Medications Dose Ordered Sig/Kathy Route Start Time Stop Time Status Last Admin Dose Admin Sodium Chloride 10 ml Q8HR IV 03/20/25 22:00 03/21/25 14:28 10 ML Docusate Sodium 100 mg BIDPRN PRN PO 03/20/25 19:45 Acetaminophen 650 mg Q6HP PRN PO 03/20/25 19:45 Acetaminophen/ Hydrocodone Bitart 1 tab Q4HP PRN PO 03/20/25 19:45 03/21/25 17:18 1 TAB Hydromorphone HCl 0.5 mg Q4HP PRN IV 03/20/25 19:45 Ondansetron HCl 4 mg Q4HP PRN IV 03/20/25 19:45 Ceftriaxone Sodium 50 ml @ 100 mls/hr DAILY@1900 IV 03/21/25 19:00 Heparin Sodium (Porcine) 5,000 units Q12HR SC 03/20/25 22:00 03/21/25 09:02 5,000 UNITS Aspirin 81 mg DAILY PO 03/21/25 10:00 03/21/25 09:02 81 MG Citalopram Hydrobromide 10 mg DAILY PO 03/21/25 10:00 03/21/25 09:01 10 MG Atorvastatin Calcium 20 mg HS PO 03/20/25 22:00 03/20/25 22:16 20 MG Hydralazine HCl 10 mg Q6HP PRN IV 03/21/25 01:00 03/21/25 12:17 10 MG Nifedipine 60 mg DAILY PO 03/22/25 10:00 Laboratory Results Laboratory Tests 03/21/25 03:43 Chemistry Test 03/21/25 03:43 Albumin 4.5 g/dL (3.2-4.8) Calcium Level 9.5 mg/dL (8.7-10.4) Magnesium Level 1.7 mg/dL (1.6-2.6) Phosphorus Level 4.0 mg/dL (2.4-5.1) Total Protein 7.2 g/dL (5.7-8.2) LFT Test 03/21/25 03:43 Alanine Aminotransferase (ALT) 11 U/L (7-40) Alkaline Phosphatase 97 U/L (46-116) Aspartate Amino Transferase (AST) 15 U/L (13-40) Total Bilirubin 0.8 mg/dL (0.2-1.0) Urinalysis Test 03/20/25 16:50 Urine Color Light-yellow (Yellow) Urine Clarity Clear (Clear) Urine pH 5.5 (5.0-9.0) Urine Specific [place] 1.013 (1.001-1.035) Urine Protein Negative (Negative) Urine Ketones Negative (Negative) Urine Blood Negative /uL (Negative) Urine Nitrite Negative (Negative) Urine Bilirubin Negative (Negative) Urine Urobilinogen Normal mg/dL (Negative) Urine Leukocyte Esterase 3+ /uL (Negative) Urine RBC 1 /hpf (0 - 4) Urine Microscopic WBC 11 /HPF (0-5) H Urine Squamous Epithelial Cells Few /hpf (<5) Urine Bacteria None seen /hpf (None Seen) Urine Glucose Normal mg/dL (Normal) Microbiology Microbiology Date/Time Source Procedure Growth Status 03/20/25 16:50 Voided Urine Urine Culture - Preliminary Resulted Assessment/Plan Assessment/Plan Acute kidney injury superimposed Chronic Kidney Disease secondary hemodynamic mediated Back pain Atrophic left kidney Urine Tract infection COPD Anemia of chronic kidney disease Hypertensive emergency Abdominal aneurysm. 5.8 cm I will restart her on calcium channel tamia as well as hydralazine oral for blood pressure control. We will have vascular surgery to evaluate the aneurysm. Otherwise continue rest of supportive care and treatment as she is on. She has been followed by Nephrology for her kidney injury felt secondary to hypertensive nephropathy. Physical therapy evaluation. Discussed with the nurse regarding care plan. Plan discussed with: Other My Orders Orders - ANDERSON COLLADO MD Procedure Category Date Status Time Nifedipine Er [facility] 03/22/25 In Process (Procardia Xl 10:00 Date of Service: Mar 21, 2025 Billing Provider: ANDERSON COLLADO MD Common Visit Codes: [id number] INP/OBS CARE(MOD) ANDERSON COLLADO MD Mar 21, 2025 17:29
[2025-03-21 20:10] VITALS: PULSE 74
[2025-03-21 21:00] VITALS: BP 129/86; PULSE 81; RESP 16; TEMP 98.2; O2SAT 90
[2025-03-22] VITALS (8 sets, daily range): BP systolic 102–142; BP diastolic 63–99; PULSE 77–114; RESP 15–18; TEMP 97.2–99.7; O2SAT 90–95
[2025-03-22] MEDS: DOCUSATE SOD 100 MG CAP PO PRN (04:23)
[2025-03-22 07:18] LABS: Hematocrit 34.4 % (36.0-46.0); Hemoglobin 11.2 g/dL (12.2-16.2); Mean Corpuscular Hemoglobin 26.2 pg (28.0-32.0); Mean Corpuscular Volume 81.0 fL (80.0-100.0); Nucleated Red Blood Cells % 0.0 %
[2025-03-22 07:38] LABS: Alkaline Phosphatase 93 U/L (46-116); Anion Gap 11 (5-15); BUN/Creatinine Ratio 13.8 (10.0-20.0); Blood Urea Nitrogen 22 mg/dL (9-23); Calcium 9.6 mg/dL (8.7-10.4); Carbon Dioxide 22 mmol/L (20-31); Potassium 3.9 mmol/L (3.5-5.1); Sodium 140 mmol/L (136-145); Total Protein 6.8 g/dL (5.7-8.2)
[2025-03-22 07:39] LABS: Albumin 4.5 g/dL (3.2-4.8); Bilirubin, Total 1.1 mg/dL (0.2-1.0)
[2025-03-22 07:40] LABS: Alanine Aminotransferase 9 U/L (7-40); Chloride 107 mmol/L (98-107); Glucose 111 mg/dL (74-106)
--- NOTE | 2025-03-22 08:20 | DVHSR ---
APPROVED REPORT EXAM: Two-dimensional and M-mode echocardiogram with Doppler and color Doppler. Blood Pressure: 128/69 mmHg INDICATION Hypertensive Emergency RISK FACTORS Height: 5' 3", Weight: 163 DIMENSIONS LVDd4.4 (3.8-5.7cm)LA (2D)4.2 (1.9-4.0cm)Aortic Root2.8 (2.0-3.7cm) LVDs2.9 (2.5-4.0cm)LA (MM) (1.9-4.0cm)Aortic Cusp Exc1.3 (1.5-2.0cm) EF (%) 65.0 (55-70%)Rt. Atrium3.6 (1.9-4.0cm)Asc. Aorta cm IVSd1.4 (0.7-1.1cm)RV (D) (1.8-2.4cm) PWd1.2 (0.7-1.1cm) Mitral Valve MitralMitral Stenosis E wave1.00m/sMV Mean GR.mmHg A wave0.90m/sMV Peak GR.mmHg E/A ratio1.12D MVAcm2 Aortic Valve Aortic ValveAortic Stenosis V11.00m/Norma Mean GR.13mmHg V22.50m/Norma Peak GR.27mmHg Pulmonic Valve V20.80m/s Tricuspid Valve TR Velocity2.50m/s [id number] Conclusion lvef 65% moderate lvh grade 1 diastolic dysfunction normal RV functoin normla atria no severe valve abnormalities noted THORACIC AORTA IS DILATED 4.4 X 4.7 CM, CORRELATE TO MORE DEDICATED IMAGING if indicated
[2025-03-22] MEDS ORDERED: CARV12.544 PO (15:25)
[2025-03-22] MEDS ORDERED: AMLO1TAB22 PO (15:25)
[2025-03-22] MEDS ORDERED: BLOO1KIT54 XX (15:29)
--- NOTE | 2025-03-22 15:30 | DVHDS2 ---
Discharge Summary Date of Admission Mar 20, 2025 at 19:41 Date of Discharge: Mar 22, 2025 Labs/Diagnostic Data: Laboratory Results Test 03/22/25 06:45 03/21/25 13:19 03/21/25 03:43 03/20/25 16:50 White Blood Count 8.4 10^3/uL (4.4-10.8) Red Blood Count 4.25 10^6/uL (4.0-5.20) Hemoglobin 11.2 g/dL (12.2-16.2) Hematocrit 34.4 % (36.0-46.0) Mean Corpuscular Volume 81.0 fL (80.0-100.0) Mean Corpuscular Hemoglobin 26.2 pg (28.0-32.0) Mean Corpuscular Hemoglobin Concent 32.4 g/dL (32.0-36.0) Red Cell Distribution Width 16.2 % (11.8-14.3) Platelet Count 158 10^3/uL (140-450) Mean Platelet Volume 8.1 fL (6.9-10.8) Neutrophils (%) (Auto) 81.0 % (37.0-80.0) Lymphocytes (%) (Auto) 10.6 % (10.0-50.0) Monocytes (%) (Auto) 7.0 % (0.0-12.0) Eosinophils (%) (Auto) 1.1 % (0.0-7.0) Basophils (%) (Auto) 0.3 % (0.0-2.0) Neutrophils # (Auto) 6.8 10 ^3/uL (1.6-8.6) Lymphocytes # (Auto) 0.9 10 ^3/uL (0.4-5.4) Monocytes # (Auto) 0.6 10 ^3/uL (0-1.3) Eosinophils # (Auto) 0.1 10 ^3/uL (0-0.8) Basophils # (Auto) 0 10 ^3/uL (0-0.2) Nucleated Red Blood Cells 0.0 % Sodium Level 140 mmol/L (136-145) Potassium Level 3.9 mmol/L (3.5-5.1) Chloride Level 107 mmol/L (98-107) Carbon Dioxide Level 22 mmol/L (20-31) Anion Gap 11 (5-15) Blood Urea Nitrogen 22 mg/dL (9-23) Creatinine 1.60 mg/dL (0.550-1.02) Glomerular Filtration Rate Calc 32 mL/min (>90) BUN/Creatinine Ratio 13.8 (10.0-20.0) Serum Glucose 111 mg/dL (74-106) Calcium Level 9.6 mg/dL (8.7-10.4) Total Bilirubin 1.1 mg/dL (0.2-1.0) Aspartate Amino Transferase (AST) 15 U/L (13-40) Alanine Aminotransferase (ALT) 9 U/L (7-40) Alkaline Phosphatase 93 U/L (46-116) Total Protein 6.8 g/dL (5.7-8.2) Albumin 4.5 g/dL (3.2-4.8) Vitamin D 25-Hydroxy 12.7 ng/mL (30.0-100) Uric Acid 5.2 mg/dL (3.1-7.8) Phosphorus Level 4.0 mg/dL (2.4-5.1) Magnesium Level 1.7 mg/dL (1.6-2.6) Parathyroid Hormone (Intact) 67.5 pg/mL (18.4-80.1) Urine Color Light-yellow (Yellow) Urine Clarity Clear (Clear) Urine pH 5.5 (5.0-9.0) Urine Specific [place] 1.013 (1.001-1.035) Urine Protein Negative (Negative) Urine Ketones Negative (Negative) Urine Blood Negative /uL (Negative) Urine Nitrite Negative (Negative) Urine Bilirubin Negative (Negative) Urine Urobilinogen Normal mg/dL (Negative) Urine Leukocyte Esterase 3+ /uL (Negative) Urine RBC 1 /hpf (0 - 4) Urine Microscopic WBC 11 /HPF (0-5) Urine Squamous Epithelial Cells Few /hpf (<5) Urine Bacteria None seen /hpf (None Seen) Urine Glucose Normal mg/dL (Normal) Other Laboratory Tests 03/22/25 06:45 Brief Hx & Hospital Course: 80-year-old female presents here with right flank pain x3 days. Denies any nausea vomiting diarrhea. She states she has been significant pain and took 6 of the brown pills yesterday. Does not known the name of it but when I asked her if was ibuprofen she shakes her head yes. She states she was not able to get here sooner as she did not have a ride. He does report dysuria during this time frame. Denies any chest pain. Denies any injury to the site. Denies any recent cough cold runny nose fever or chills. She is admitted and treated for her blood pressure. Patient is evaluated by circus hand, vascular surgery. Patient's lisinopril held due to JOIE. Patient's blood pressure medications have been adjusted and her blood pressure has controlled. In terms of her abdominal aortic aneurysm vascular surgery recommended referral to tertiary care centers for elective surgery. While in the hospital patient did not have any symptoms related to her abdominal aortic aneurysm. Patient as well as the daughter counseled and educated regarding good blood pressure control to minimize expansion of aneurysm and have close follow up with the PCP and referral to higher level of care for elective AAA surgery. Otherwise patient is clinically stable. Feeling better back to normal baseline status. Therefore it is felt she could be safely discharged home. Patient as well as the daughter verbalized understanding of this, verbalized understanding over hospital diagnosis, treatment she received, discharge medications including side effects, discharge instructions and agree with the discharge follow-up plan of care as outlined. 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 Plan discussed with: Patient DAVE QUEZADA Jr., MD Mar 22, 2025 15:38 Operations or Procedures APPROVED REPORT EXAM: Two-dimensional and M-mode echocardiogram with Doppler and color Doppler. Blood Pressure: 128/69 mmHg INDICATION Hypertensive Emergency RISK FACTORS Height: 5' 3", Weight: 163 DIMENSIONS LVDd 4.4 (3.8-5.7cm) LA (2D) 4.2 (1.9-4.0cm) Aortic Root 2.8 (2.0- 3.7cm) LVDs 2.9 (2.5-4.0cm) LA (MM) (1.9-4.0cm) Aortic Cusp Exc 1.3 (1.5- 2.0cm) EF (%) 65.0 (55-70%) Rt. Atrium 3.6 (1.9-4.0cm) Asc. Aorta cm IVSd 1.4 (0.7-1.1cm) RV (D) (1.8-2.4cm) PWd 1.2 (0.7-1.1cm) Mitral Valve Mitral Mitral Stenosis E wave 1.00m/s MV Mean GR. mmHg A wave 0.90m/s MV Peak GR. mmHg E/A ratio 1.1 2D MVA cm2 Aortic Valve Aortic Valve Aortic Stenosis V1 1.00m/s AO Mean GR. 13mmHg V2 2.50m/s AO Peak GR. 27mmHg Pulmonic Valve V2 0.80m/s Tricuspid Valve TR Velocity 2.50m/s RVSP 30mmHg Conclusion lvef 65% moderate lvh grade 1 diastolic dysfunction normal RV functoin normla atria no severe valve abnormalities noted THORACIC AORTA IS DILATED 4.4 X 4.7 CM, CORRELATE TO MORE DEDICATED IMAGING if indicated SIGNED BY: CUBA COSTELLO MD SIGNED DATE/TIME: 03/22/25 08 Condition at Discharge: Stable Final Diagnosis/Problems List Hypertensive emergency due to medication noncompliance Malignant hypertension Thoracic/upper Abdominal aneurysm. 5.8 cm Acute kidney injury superimposed Chronic Kidney Disease secondary hemodynamic mediated Back pain Atrophic left kidney COPD Anemia of chronic kidney disease Discharge Disposition: Home Discharge Instruct/Medications Diet: Consistent carbohydrate, Cardiac 2g Na,low cholest Activity: No Restrictions, As Tolerated Follow Up/Referral: Primary care physician Dr. Champ Newby next week and referal to higher level of care in the next 3-4 weeks for evaluation of thoracic/abdominal aortic aneurysm with a possible repair Medications: Take blood pressure medications as prescribed and other medications as per discharge home med reconciliation list Scheduled Amlodipine Besylate (Amlodipine Besylate), 1 TAB PO DAILY Aspirin (Aspir-Low), 81 MG PO DAILY, (Reported) Carvedilol (Carvedilol), 1 TAB PO BID Escitalopram Oxalate (Lexapro), 1 TAB PO DAILY, (Reported) Simvastatin (Simvastatin), 40 MG PO HS, (Reported) Scheduled PRN Hydrocodone-Acetaminophen (Hydrocodone Bitartrate/AC 5-325 mg), 1 TAB PO Q8HP PRN Discontinued Medications Hydrocodone-Acetaminophen (Acetaminophen/Hydrocodone), 5-325 MG PO Q6HP PRN for MODERATE PAIN, (Reported) Lisinopril (Lisinopril), 10 MG PO DAILY Oseltamivir Phosphate (Tamiflu), 30 MG PO BID Sulfamethoxazole W/Trimethopri (Bactrim Ds Tablet), 1 TAB PO BID Durable Medical Equipment Misc. Devices (Blood Pressure Monitor), EA XX DAILY, (DME) Discharge Statement: "Patient was advised to return to the ER or call 911 if any headaches, dizziness, shortness of breath, chest pain, abdominal pain, bleeding, fevers, or worsening of medical condition. Patient was counseled about treatment plan, medications, possible side effects, patientverbalized understanding. All questions were answered to the best of my ability. This discharge took greater then 30 minutes in planning, reviewing documentation, counseling the patient, and discussing with other team members." ASSESSMENT ASSESSMENT Assessment Hypertensive emergency due to medication noncompliance Malignant hypertension Thoracic/upper Abdominal aneurysm. 5.8 cm Acute kidney injury superimposed Chronic Kidney Disease secondary hemodynamic mediated Back pain Atrophic left kidney COPD Anemia of chronic kidney disease Date of Service: Mar 22, 2025 Billing Provider: ANDERSON COLLADO MD Common Visit Codes: [id number]-[id number] DISCH DAY <30MIN ANDERSON COLLADO MD Mar 22, 2025 15:30
--- NOTE | 2025-03-22 15:39 | DVHCONRES ---
Date Seen: Mar 22, 2025 Resident Creating Document: DAVE QUEZADA Jr., MD Referring Physician Chris Reason for Consultation 80-year-old female presents here with right flank pain x3 days. Denies any nausea vomiting diarrhea. She states she has been significant pain and took 6 of the brown pills yesterday. Does not known the name of it but when I asked her if was ibuprofen she shakes her head yes. She states she was not able to get here sooner as she did not have a ride. He does report dysuria during this time frame. Denies any chest pain. Denies any injury to the site. Denies any recent cough cold runny nose fever or chills. On CT scan was found to have a super celiac abdominal aortic aneurysm measuring 5.8 cm. History of Present Illness Hypertension Past Medical History Anxiety, Asthma, COPD, High Lipids, HTN Past Surgical History Hysterectomy Family History: Cancer G8 SISTER (BREAST) G8 SISTER (BREAST) Diabetes mellitus in brother FH: emphysema G8 SISTER Family history: Cardiovascular disease G8 MOTHER Social History Nonsmoker and nondrinker quit many years ago Allergies: Coded Allergies: NO KNOWN ALLERGIES (Unverified , 08/31/14) Home Meds Active Scripts Misc. Devices (Blood Pressure Monitor) Monitor Kit, EA XX DAILY, #1 Prov:ANDERSON COLLADO MD 03/22/25 Amlodipine Besylate (Amlodipine Besylate) 5 Mg Tab, 1 TAB PO DAILY, #90 TAB 1 Refill Prov:ANDERSON COLLADO MD 03/22/25 Carvedilol (Carvedilol) 12.5 Mg Tab, 1 TAB PO BID, #60 TAB 1 Refill Prov:ANDERSON COLLADO MD 03/22/25 Hydrocodone-Acetaminophen (Hydrocodone Bitartrate/AC 5-325 mg) 1 Tab Tab, 1 TAB PO Q8HP PRN, #12 TAB Prov:CRISTY DIEGO 01/09/25 Sulfamethoxazole W/Trimethopri (Bactrim Ds Tablet) 1 Tab Tb, 1 TAB PO BID for 10 Days, #20 TAB Prov:CRISTY DIEGO 01/09/25 Oseltamivir Phosphate (Tamiflu) 30 Mg Cp, 30 MG PO BID for 5 Days, #10 CAP Prov:LEONCIO PASCAL MD 06/24/22 Lisinopril (Lisinopril) 10 Mg Tab, 10 MG PO DAILY for 30 Days, #30 TAB Prov:LEONCIO PASCAL MD 06/24/22 Reported Medications Escitalopram Oxalate (Lexapro) 5 Mg Tab, 1 TAB PO DAILY, #30 TAB 2 Refills 09/30/21 Aspirin (Aspir-Low) 81 Mg Tab, 81 MG PO DAILY for 30 Days, MG 09/30/21 Hydrocodone-Acetaminophen (Acetaminophen/Hydrocodone) 1 Tab Tab, 5-325 MG PO Q6HP PRN for MODERATE PAIN, #120 08/31/14 Simvastatin (Simvastatin) 40 Mg Tab, 40 MG PO HS, #60 08/31/14 Current Medications Current Medications Medications (Trade) Dose Ordered Sig/Kathy Route PRN Reason Start Time Stop Time Status Last Admin Ceftriaxone Sodium 50 ml @ 100 mls/hr DAILY@1900 IV 03/21/25 19:00 03/21/25 18:51 Nifedipine (Procardia Xl (Time-Release)) 60 mg DAILY PO 03/22/25 10:00 03/22/25 13:31 DC Hydralazine HCl (Apresoline Tablet) 25 mg BID PO 03/21/25 22:00 03/22/25 13:31 DC 03/21/25 22:22 Carvedilol (Coreg Tablet) 6.25 mg BID PO 03/22/25 22:00 Review of Systems All systems reviewed otherwise negative other than what is in HPI Vital Signs Vital Signs Date Time Temp Pulse Resp B/P (MAP) Pulse Ox O2 Delivery O2 Flow Rate FiO2 03/22/25 13:00 97.9 77 18 111/65 (80) 90 97.9 03/22/25 08:00 Room Air* 0 21 Physical Exam Head eyes ears nose and throat exam eyes are nonicteric conjunctiva is pink neck was supple no JVD no lymphadenopathy no carotid bruits lungs are clear to auscultation heart was regular rate and rhythm abdomen is soft nontender there was pulsatile mass in the epigastrium. Pulse exam palpable femoral and weakly palpable pedal pulses. Labs/Diagnostic Data Labs Test 03/22/25 06:45 03/21/25 13:19 03/21/25 03:43 03/20/25 16:50 Range/Units White Blood Count 8.4 4.4-10.8 10^3/uL Red Blood Count 4.25 4.0-5.20 10^6/uL Hemoglobin 11.2 L 12.2-16.2 g/dL Hematocrit 34.4 L 36.0-46.0 % Mean Corpuscular Volume 81.0 80.0-100.0 fL Mean Corpuscular Hemoglobin 26.2 L 28.0-32.0 pg Mean Corpuscular Hemoglobin Concent 32.4 32.0-36.0 g/dL Red Cell Distribution Width 16.2 H 11.8-14.3 % Platelet Count 158 140-450 10^3/uL Mean Platelet Volume 8.1 6.9-10.8 fL Neutrophils (%) (Auto) 81.0 H 37.0-80.0 % Lymphocytes (%) (Auto) 10.6 10.0-50.0 % Monocytes (%) (Auto) 7.0 0.0-12.0 % Eosinophils (%) (Auto) 1.1 0.0-7.0 % Basophils (%) (Auto) 0.3 0.0-2.0 % Neutrophils # (Auto) 6.8 1.6-8.6 10 ^3/uL Lymphocytes # (Auto) 0.9 0.4-5.4 10 ^3/uL Monocytes # (Auto) 0.6 0-1.3 10 ^3/uL Eosinophils # (Auto) 0.1 0-0.8 10 ^3/uL Basophils # (Auto) 0 0-0.2 10 ^3/uL Nucleated Red Blood Cells 0.0 % Sodium Level 140 # 136-145 mmol/L Potassium Level 3.9 3.5-5.1 mmol/L Chloride Level 107 98-107 mmol/L Carbon Dioxide Level 22 20-31 mmol/L Anion Gap 11 5-15 Blood Urea Nitrogen 22 9-23 mg/dL Creatinine 1.60 H 0.550-1.02 mg/dL Glomerular Filtration Rate Calc 32 >90 mL/min BUN/Creatinine Ratio 13.8 10.0-20.0 Serum Glucose 111 H 74-106 mg/dL Calcium Level 9.6 8.7-10.4 mg/dL Total Bilirubin 1.1 H 0.2-1.0 mg/dL Aspartate Amino Transferase (AST) 15 13-40 U/L Alanine Aminotransferase (ALT) 9 7-40 U/L Alkaline Phosphatase 93 46-116 U/L Total Protein 6.8 5.7-8.2 g/dL Albumin 4.5 3.2-4.8 g/dL Vitamin D 25-Hydroxy 12.7 L 30.0-100 ng/mL Uric Acid 5.2 3.1-7.8 mg/dL Phosphorus Level 4.0 2.4-5.1 mg/dL Magnesium Level 1.7 1.6-2.6 mg/dL Parathyroid Hormone (Intact) 67.5 18.4-80.1 pg/mL Urine Color Light-yellow Yellow Urine Clarity Clear Clear Urine pH 5.5 5.0-9.0 Urine Specific [place] 1.013 1.001-1.035 Urine Protein Negative Negative Urine Ketones Negative Negative Urine Blood Negative Negative /uL Urine Nitrite Negative Negative Urine Bilirubin Negative Negative Urine Urobilinogen Normal Negative mg/dL Urine Leukocyte Esterase 3+ Negative /uL Urine RBC 1 0 - 4 /hpf Urine Microscopic WBC 11 H 0-5 /HPF Urine Squamous Epithelial Cells Few <5 /hpf Urine Bacteria None seen None Seen /hpf Urine Glucose Normal Normal mg/dL Microbiology Date/Time Source Procedure Growth Status 03/20/25 16:50 Voided Urine Urine Culture - Preliminary Resulted CT CT AB PEL WO CON-NO ORAL OR IV History: ro kidney stone Comparison Study: CT ANGIO ABD AORTA W RUN OFF on DOS: 06/22/22, PELVIS AP on DOS: 10/02/21 TECHNIQUE: Multidetector CT of the abdomen was performed from lung bases to pubic symphysis. Imaging was performed without IV contrast. Axial, coronal and sagittal multiplanar reformats were obtained from the axial data set by the technologist. Radiation Dose Information: CT Dose: CTDI volume is 17.72 mGy. Dose-length product is 963.24 mGy*cm FINDINGS: Evaluation of solid organs is limited due to lack of intravenous contrast use. Findings: Lung Bases: No acute or significant lung base finding. Normal heart size. No pleural or pericardial effusion. Liver: The liver is normal in size. No focal lesions. Gallbladder and Biliary Tree: Unremarkable Spleen: Unremarkable Pancreas: The pancreas is grossly normal in appearance. Adrenal Glands: Unremarkable Kidneys: Atrophic left kidney Bladder: Grossly unremarkable for degree of distention. Bowel: The stomach is grossly normal in appearance. Small bowel and colon are normal in caliber and distribution. The appendix is not visualized; however, no secondary findings of acute appendicitis identified. Ascites: Absent Lymphadenopathy: No mesenteric, retroperitoneal or periportal lymphadenopathy. Abdominal Wall and Mesentery: Unremarkable. Vasculature: Abdominal aorta above celiac and superior mesenteric arteries measures 5.8 cm in diameter. Aorta below the renal arteries measures 3.7 cm. Aorta above the bifurcation measures 1.9 cm. Right iliac artery measures 7-8 mm. Left iliac artery measures 9 mm. Pelvic Organs: Unremarkable Musculoskeletal: No aggressive focal bony lesions, acute fractures or dislocation. Soft tissues: Unremarkable IMPRESSION: 1. No nephrolithiasis or hydronephrosis. Atrophic left kidney is visualized. 2. Abdominal aorta is of aneurysmal size (5.8 cm) above the celiac artery. 3. Abdominal aorta at the level of the celiac and superior mesenteric arteries measures. 4. Below the renal arteries and measures 3.7 cm. 5. Just above the aortic bifurcation and measures 1.9 cm. 6. Right iliac artery measures 7-8 mm. Left iliac artery measures 9 mm. 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 Plan discussed with: Patient DAVE QUEZADA Jr., MD Mar 22, 2025 15:38
--- NOTE | 2025-03-22 18:08 | DVHPN2 ---
Progress Note Date Seen: Mar 22, 2025 Medical Necessity Reason Pt with a Central, PICC or Fol: No Subjective Patient reports: No new complaints Objective vital signs Vital Sign Date Time Temp Pulse Resp B/P (MAP) Pulse Ox O2 Delivery O2 Flow Rate FiO2 03/22/25 17:00 98.4 79 18 128/77 (94) 91 98.4 03/22/25 08:00 Room Air* 0 21 Total Intake and Output 03/21/25 03/21/25 03/22/25 15:00 23:00 07:00 Intake Total 50 ml 100 ml Output Total 525 ml 300 ml Balance -475 ml -200 ml medications Current Medications Medications Dose Ordered Sig/Kathy Route Start Time Stop Time Status Last Admin Dose Admin Sodium Chloride 10 ml Q8HR IV 03/20/25 22:00 03/22/25 14:00 10 ML Docusate Sodium 100 mg BIDPRN PRN PO 03/20/25 19:45 03/22/25 04:23 100 MG Acetaminophen 650 mg Q6HP PRN PO 03/20/25 19:45 Acetaminophen/ Hydrocodone Bitart 1 tab Q4HP PRN PO 03/20/25 19:45 03/21/25 17:18 1 TAB Hydromorphone HCl 0.5 mg Q4HP PRN IV 03/20/25 19:45 Ondansetron HCl 4 mg Q4HP PRN IV 03/20/25 19:45 Ceftriaxone Sodium 50 ml @ 100 mls/hr DAILY@1900 IV 03/21/25 19:00 03/21/25 18:51 100 MLS/HR Heparin Sodium (Porcine) 5,000 units Q12HR SC 03/20/25 22:00 03/22/25 09:55 5,000 UNITS Aspirin 81 mg DAILY PO 03/21/25 10:00 03/22/25 09:53 81 MG Citalopram Hydrobromide 10 mg DAILY PO 03/21/25 10:00 03/22/25 09:53 10 MG Atorvastatin Calcium 20 mg HS PO 03/20/25 22:00 03/21/25 22:22 20 MG Hydralazine HCl 10 mg Q6HP PRN IV 03/21/25 01:00 03/21/25 12:17 10 MG Carvedilol 6.25 mg BID PO 03/22/25 22:00 Examination: HEENT:Abnormal (hearing loss), MSK:Abnormal (no edema) laboratory and microbiology Laboratory Tests 03/22/25 06:45 Test 03/22/25 06:45 Range/Units Serum Glucose 111 H 74-106 mg/dL Microbiology Date/Time Source Procedure Growth Status 03/20/25 16:50 Voided Urine Urine Culture - Preliminary Resulted Problem List/Assessment/Plan Problem List/Assessment/Plan Acute kidney injury superimposed 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
[2025-03-22] MEDS: CARVEDILOL 3.125 MG TAB PO SCH (21:57)
--- NOTE | 2025-03-22 22:19 | DVHPN2 ---
[facility] Blood pressure is controlled. Discussed with the granddaughter at bedside at length regarding her blood pressure medications and close follow up with the PCP and vascular surgery. Vascular surgeon evaluated her this afternoon recommending outpatient follow up with a tertiary center for further evaluation of her aneurysm. Changes from previous H/P or p: No Changes Objective Vitals Vital Signs Date Time Temp Pulse Resp B/P (MAP) Pulse Ox O2 Delivery O2 Flow Rate FiO2 03/22/25 21:57 79 128/77 03/22/25 17:00 98.4 18 91 98.4 03/22/25 08:00 Room Air* 0 21 Intake/Output Intake and Output 03/22/25 07:00 Intake Total 150 ml Output Total 825 ml Balance -675 ml Intake Oral 100 ml IV Total 50 ml Output Urine Total 825 ml General Appearance: Alert, Oriented X3 HEENT: Atraumatic, PERRLA, EOMI Lungs: Clear to auscultation, Normal air movement Cardiovascular: Regular rate, Normal S1, Normal S2, No murmurs Abdomen: Normal bowel sounds, Soft, No tenderness, No hepatospenomegaly Extremities: No cyanosis, No edema, Normal pulses Neuro: Normal speech Psych/Mental Status: Mental status NL Medications Current Medications Medications Dose Ordered Sig/Kathy Route Start Time Stop Time Status Last Admin Dose Admin Sodium Chloride 10 ml Q8HR IV 03/20/25 22:00 03/22/25 21:35 10 ML Docusate Sodium 100 mg BIDPRN PRN PO 03/20/25 19:45 03/22/25 04:23 100 MG Acetaminophen 650 mg Q6HP PRN PO 03/20/25 19:45 Acetaminophen/ Hydrocodone Bitart 1 tab Q4HP PRN PO 03/20/25 19:45 03/21/25 17:18 1 TAB Hydromorphone HCl 0.5 mg Q4HP PRN IV 03/20/25 19:45 Ondansetron HCl 4 mg Q4HP PRN IV 03/20/25 19:45 Ceftriaxone Sodium 50 ml @ 100 mls/hr DAILY@1900 IV 03/21/25 19:00 03/22/25 18:38 100 MLS/HR Heparin Sodium (Porcine) 5,000 units Q12HR SC 03/20/25 22:00 03/22/25 21:54 5,000 UNITS Aspirin 81 mg DAILY PO 03/21/25 10:00 03/22/25 09:53 81 MG Citalopram Hydrobromide 10 mg DAILY PO 03/21/25 10:00 03/22/25 09:53 10 MG Atorvastatin Calcium 20 mg HS PO 03/20/25 22:00 03/22/25 21:34 20 MG Hydralazine HCl 10 mg Q6HP PRN IV 03/21/25 01:00 03/21/25 12:17 10 MG Carvedilol 6.25 mg BID PO 03/22/25 22:00 03/22/25 21:57 6.25 MG Laboratory Results Laboratory Tests 03/22/25 06:45 Chemistry Test 03/22/25 06:45 Albumin 4.5 g/dL (3.2-4.8) Calcium Level 9.6 mg/dL (8.7-10.4) Total Protein 6.8 g/dL (5.7-8.2) LFT Test 03/22/25 06:45 Alanine Aminotransferase (ALT) 9 U/L (7-40) Alkaline Phosphatase 93 U/L (46-116) Aspartate Amino Transferase (AST) 15 U/L (13-40) Total Bilirubin 1.1 mg/dL (0.2-1.0) H Urinalysis Test 03/20/25 16:50 Urine Color Light-yellow (Yellow) Urine Clarity Clear (Clear) Urine pH 5.5 (5.0-9.0) Urine Specific [place] 1.013 (1.001-1.035) Urine Protein Negative (Negative) Urine Ketones Negative (Negative) Urine Blood Negative /uL (Negative) Urine Nitrite Negative (Negative) Urine Bilirubin Negative (Negative) Urine Urobilinogen Normal mg/dL (Negative) Urine Leukocyte Esterase 3+ /uL (Negative) Urine RBC 1 /hpf (0 - 4) Urine Microscopic WBC 11 /HPF (0-5) H Urine Squamous Epithelial Cells Few /hpf (<5) Urine Bacteria None seen /hpf (None Seen) Urine Glucose Normal mg/dL (Normal) Microbiology Microbiology Date/Time Source Procedure Growth Status 03/20/25 16:50 Voided Urine Urine Culture - Preliminary Resulted Assessment/Plan Assessment/Plan Acute kidney injury superimposed Chronic Kidney Disease secondary hemodynamic mediated Back pain Atrophic left kidney Urine Tract infection COPD Anemia of chronic kidney disease Hypertensive emergency Abdominal aneurysm. 5.8 cm To continue current blood pressure medications as she is on. We will use p.r.n. hydralazine for optimal control. Otherwise patient needs to follow up outpatient with the PCP and vascular surgery for further evaluation for aneurysm. Patient is stable to be discharged home. Discussed with the granddaughter at bedside this afternoon.. Plan discussed with: Patient, Daughter My Orders Orders - ANDERSON COLLADO MD Procedure Category Date Status Time Carvedilol Tablet PHA 03/22/25 In Process (Coreg Tablet) 22:00 * Drupal Developer CONS 03/22/25 Transmitted Consult Discontinue Tang ALESHIA 03/22/25 In Process Catheter 15:17 Discharge DISCHARGE 03/22/25 Transmitted 15:21 Follow Up In 2 Wk ORDERS 03/22/25 Transmitted Upon D/C 15:21 Date of Service: Mar 22, 2025 Billing Provider: ANDERSON COLLADO MD Common Visit Codes: [id number] INP/OBS CARE(MOD) ANDERSON COLLADO MD Mar 22, 2025 22:19
[2025-03-23 01:00] VITALS: BP 143/80; PULSE 67; RESP 17; TEMP 98.6; O2SAT 91
[2025-03-23 05:00] VITALS: BP 146/77; PULSE 65; RESP 17; TEMP 97.8; O2SAT 92
[2025-03-23 07:06] LABS: Hemoglobin 10.8 g/dL (12.2-16.2); Mean Corpuscular Hemoglobin 26.6 pg (28.0-32.0)
[2025-03-23 07:08] LABS: Hematocrit 32.6 % (36.0-46.0); Mean Corpuscular Volume 80.3 fL (80.0-100.0); Nucleated Red Blood Cells % 0.2 %
[2025-03-23 07:13] LABS: Albumin 4.3 g/dL (3.2-4.8); Alkaline Phosphatase 85 U/L (46-116); Anion Gap 10 (5-15); BUN/Creatinine Ratio 13.3 (10.0-20.0); Blood Urea Nitrogen 19 mg/dL (9-23); Calcium 9.5 mg/dL (8.7-10.4); Carbon Dioxide 24 mmol/L (20-31); Chloride 107 mmol/L (98-107); Glucose 104 mg/dL (74-106); Potassium 3.7 mmol/L (3.5-5.1); Sodium 141 mmol/L (136-145); Total Protein 6.5 g/dL (5.7-8.2)
[2025-03-23 07:14] LABS: Bilirubin, Total 0.8 mg/dL (0.2-1.0)
[2025-03-23 07:24] LABS: Alanine Aminotransferase 9 U/L (7-40)
[2025-03-23 08:00] VITALS: PULSE 67; PULSE 68; RESP 17; O2SAT 91
[2025-03-23 09:00] VITALS: BP 144/89; PULSE 67; RESP 17; TEMP 98; O2SAT 91
[2025-03-23 12:42] VITALS: BP 144/89; PULSE 67; RESP 17; TEMP 98; O2SAT 91
[2025-03-23 13:00] VITALS: BP 126/76; PULSE 94; RESP 18; TEMP 98.2; O2SAT 91
--- NOTE | 2025-03-23 16:57 | DVHPN2 ---
Progress Note Date Seen: Mar 23, 2025 Medical Necessity Reason Pt with a Central, PICC or Fol: No Subjective Patient reports: No new complaints Review of Systems: Deferred Objective vital signs Vital Sign Date Time Temp Pulse Resp B/P (MAP) Pulse Ox O2 Delivery O2 Flow Rate FiO2 03/23/25 13:00 98.2 94 18 126/76 (93) 91 98.2 03/23/25 08:00 Room Air* 0 21 Total Intake and Output 03/22/25 03/22/25 03/23/25 15:00 23:00 07:00 Intake Total 850 ml 280 ml Output Total 350 ml Balance 500 ml 280 ml laboratory and microbiology Laboratory Tests 03/23/25 06:28 Test 03/23/25 06:28 Range/Units Serum Glucose 104 74-106 mg/dL Microbiology Date/Time Source Procedure Growth Status 03/20/25 16:50 Voided Urine Urine Culture - Final Complete Problem List/Assessment/Plan Problem List/Assessment/Plan Acute kidney injury superimposed 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
== END 2025-03-23 13:34 | disposition home or self-care (01) | DRG 690 ==
LOC: ER 14:44 → OVERFLOW 19:41 → TELE-EAST 03-21 16:19
PROVIDERS: ADMIT Hospitalist; ATTEND Hospitalist
DX: N30.00 Acute cystitis without hematuria (principal); I16.1 Hypertensive emergency; N17.9 Acute kidney failure, unspecified; N12 Tubulo-interstitial nephritis, not specified as acute or chronic; I71.60 Thoracoabdominal aortic aneurysm, without rupture, unspecified; D63.1 Anemia in chronic kidney disease; N18.9 Chronic kidney disease, unspecified; J44.89 Other specified chronic obstructive pulmonary disease; I12.9 Hypertensive chronic kidney disease with stage 1 through stage 4 chronic kidney disease, or unspecified chronic kidney disease; F41.9 Anxiety disorder, unspecified; Z79.82 Long term (current) use of aspirin; Z79.899 Other long term (current) drug therapy; Z91.148 Patient's other noncompliance with medication regimen for other reason; Z90.710 Acquired absence of both cervix and uterus; Z83.3 Family history of diabetes mellitus; Z82.49 Family history of ischemic heart disease and other diseases of the circulatory system
CPT/HCPCS: 36415; 74176; 76775; 80053; 81001; 82306; 83735; 83970; 84100; 84550; 85025; 87086; 93306; 96365; 96375; 99291; G0378; J2405